=== PATIENT | male | born 1965 | race Caucasian/White ===

== ENCOUNTER → 2016-10-28 | Outpatient (REF) | payer OTHER ==
[2016-10-28 13:07] LABS: ALBUMIN 4.3 GM/DL (3.2-5.2); ALBUMIN/GLOBULIN RATIO 1.43 (1.00-1.93); ALKALINE PHOSPHATASE 68 U/L (45-117); ALT/SGPT 35 U/L (12-78); ANION GAP 5 MEQ/L (8-16); AST/SGOT 20 U/L (15-37); BILIRUBIN,TOTAL 0.6 MG/DL (0.2-1.0); BLOOD UREA NITROGEN 15 MG/DL (7-18); CALCIUM LEVEL 9.2 MG/DL (8.5-10.1); CARBON DIOXIDE LEVEL 30 MEQ/L (21-32); CHLORIDE LEVEL 99 MEQ/L (98-107); CHOLESTEROL LEVEL 143 MG/DL (<200); CREATININE FOR GFR 0.93 MG/DL (0.70-1.30); FREE T4 1.09 NG/DL (0.76-1.46); GLOMERULAR FILTRATION RATE > 60.0 (>56); GLUCOSE, FASTING 106 MG/DL (70-105); SODIUM LEVEL 134 MEQ/L (136-145); TOTAL PROTEIN 7.3 GM/DL (6.4-8.2); TRIGLYCERIDES LEVEL 50 MG/DL (<150)
[2016-10-28 13:15] LABS: POTASSIUM SERUM 5.6 MEQ/L (3.5-5.1)
== END ==
LOC: M LABDRAW1 11:52
PROVIDERS: ATTEND Nurse Practitioner Family
DX: E78.2 Mixed hyperlipidemia (principal); E03.9 Hypothyroidism, unspecified

== ENCOUNTER → 2016-11-04 | Outpatient (REF) | payer OTHER ==
[2016-11-04 16:28] LABS: ANION GAP 7 MEQ/L (8-16); BLOOD UREA NITROGEN 14 MG/DL (7-18); CALCIUM LEVEL 8.9 MG/DL (8.5-10.1); CARBON DIOXIDE LEVEL 30 MEQ/L (21-32); CHLORIDE LEVEL 102 MEQ/L (98-107); CREATININE FOR GFR 0.85 MG/DL (0.70-1.30); GLOMERULAR FILTRATION RATE > 60.0 (>56); GLUCOSE, FASTING 91 MG/DL (70-105); SODIUM LEVEL 139 MEQ/L (136-145)
[2016-11-04 16:45] LABS: MEAN CORPUSCULAR HEMOGLOBIN 31.9 pg (27.0-33.0); MEAN CORPUSCULAR HGB CONC 33.9 g/dl (32.0-36.5); MEAN CORPUSCULAR VOLUME 94.1 fl (80.0-96.0); RED CELL DISTRIBUTION WIDTH 11.9 % (11.5-14.5); WHITE BLOOD COUNT 5.8 K/mm3 (4.0-10.0)
== END ==
LOC: M SFHCPLAZ 10:05
PROVIDERS: ATTEND Nurse Practitioner Family
DX: J30.2 Other seasonal allergic rhinitis (principal); I25.10 Atherosclerotic heart disease of native coronary artery without angina pectoris

== ENCOUNTER → 2016-12-02 | Outpatient (REF) | payer OTHER | LOC: M SFHCLERA 08:52 | PROVIDERS: ATTEND Dermatology | DX: D22.5 Melanocytic nevi of trunk (principal) ==

== ENCOUNTER → 2016-12-17 | Outpatient (REF) | payer OTHER | LOC: M SFHCLERA 08:57 | PROVIDERS: ATTEND Dermatology | DX: L82.0 Inflamed seborrheic keratosis (principal) ==

== ENCOUNTER → 2017-04-27 | Outpatient (REF) | payer OTHER ==
[2017-04-27 13:24] LABS: ALBUMIN 4.1 GM/DL (3.2-5.2); ALBUMIN/GLOBULIN RATIO 1.24 (1.00-1.93); ALKALINE PHOSPHATASE 72 U/L (45-117); ALT/SGPT 33 U/L (12-78); ANION GAP 9 MEQ/L (8-16); AST/SGOT 17 U/L (7-37); BILIRUBIN,TOTAL 0.4 MG/DL (0.2-1.0); BLOOD UREA NITROGEN 16 MG/DL (7-18); CALCIUM LEVEL 8.9 MG/DL (8.5-10.1); CARBON DIOXIDE LEVEL 28 MEQ/L (21-32); CHLORIDE LEVEL 102 MEQ/L (98-107); CREATININE FOR GFR 0.84 MG/DL (0.70-1.30); FREE T4 1.15 NG/DL (0.76-1.46); GLOMERULAR FILTRATION RATE > 60.0 (>56); GLUCOSE, FASTING 96 MG/DL (70-105); SODIUM LEVEL 139 MEQ/L (136-145); TOTAL PROTEIN 7.4 GM/DL (6.4-8.2)
== END ==
LOC: M SFHCPLAZ 12:29
PROVIDERS: ATTEND Nurse Practitioner Family
DX: E03.9 Hypothyroidism, unspecified (principal); E55.9 Vitamin D deficiency, unspecified

== ENCOUNTER → 2017-10-12 | Outpatient (CLI) | payer BC, OTHER | LOC: M RAD 08:35 | DX: K40.90 Unilateral inguinal hernia, without obstruction or gangrene, not specified as recurrent (principal) ==

== ENCOUNTER → 2017-10-28 | Outpatient (REF) | payer BC, OTHER ==
[2017-10-28 12:43] LABS: ALBUMIN 4.2 GM/DL (3.2-5.2); ALBUMIN/GLOBULIN RATIO 1.27 (1.00-1.93); ALKALINE PHOSPHATASE 75 U/L (45-117); ALT/SGPT 29 U/L (12-78); ANION GAP 6 MEQ/L (8-16); AST/SGOT 21 U/L (7-37); BILIRUBIN,TOTAL 0.8 MG/DL (0.2-1.0); BLOOD UREA NITROGEN 16 MG/DL (7-18); CALCIUM LEVEL 9.2 MG/DL (8.5-10.1); CARBON DIOXIDE LEVEL 30 MEQ/L (21-32); CHLORIDE LEVEL 106 MEQ/L (98-107); CHOLESTEROL LEVEL 147 MG/DL (<200); CHOLESTEROL RISK RATIO 2.041 (<5); FREE T4 1.21 NG/DL (0.76-1.46); GLOMERULAR FILTRATION RATE > 60.0 (>56); GLUCOSE, FASTING 104 MG/DL (70-100); HDL CHOLESTEROL 72 MG/DL (>40); LDL CHOLESTEROL 66.2 MG/DL (<100); MAGNESIUM LEVEL 2.1 MG/DL (1.8-2.4); NON-HDL-C 75 MG/DL; SODIUM LEVEL 142 MEQ/L (136-145); TOTAL PROTEIN 7.5 GM/DL (6.4-8.2); TRIGLYCERIDES LEVEL 44 MG/DL (<150)
== END ==
LOC: M LABDRAW1 09:33
DX: E78.2 Mixed hyperlipidemia (principal); E03.9 Hypothyroidism, unspecified; K21.9 Gastro-esophageal reflux disease without esophagitis

== ENCOUNTER → 2018-07-04 | Outpatient (REF) | payer OTHER | LOC: M LAB REF 13:20 | PROVIDERS: ATTEND Podiatrist Foot & Ankle Surgery | DX: L98.0 Pyogenic granuloma (principal) ==

== ENCOUNTER → 2018-07-04 | Outpatient (REF) | payer OTHER ==
[2018-07-04 12:36] LABS: BLOOD UREA NITROGEN 15 MG/DL (7-18); CHLORIDE LEVEL 105 MEQ/L (98-107); CREATININE FOR GFR 0.86 MG/DL (0.70-1.30); GLOMERULAR FILTRATION RATE > 60.0 (>56); GLUCOSE, FASTING 103 MG/DL (70-100); POTASSIUM SERUM 4.6 MEQ/L (3.5-5.1); SODIUM LEVEL 141 MEQ/L (136-145)
[2018-07-04 12:37] LABS: ALT/SGPT 26 U/L (12-78); BILIRUBIN,TOTAL 0.7 MG/DL (0.2-1.0); CALCIUM LEVEL 9.3 MG/DL (8.5-10.1); CARBON DIOXIDE LEVEL 28 MEQ/L (21-32); CHOLESTEROL LEVEL 151 MG/DL (<200); CHOLESTEROL RISK RATIO 2.516 (<5); FREE T4 1.01 NG/DL (0.76-1.46); HDL CHOLESTEROL 60 MG/DL (>40); LDL CHOLESTEROL 79 MG/DL (<100); NON-HDL-C 91 MG/DL; TOTAL 25(OH) VITAMIN D 35.4 NG/ML (30.0-100.0); TOTAL PROTEIN 7.3 GM/DL (6.4-8.2); TRIGLYCERIDES LEVEL 59 MG/DL (<150)
== END ==
LOC: M LABDRAW1 09:10
PROVIDERS: ATTEND Nurse Practitioner Family
DX: E78.2 Mixed hyperlipidemia (principal); E03.9 Hypothyroidism, unspecified; E55.9 Vitamin D deficiency, unspecified

== ENCOUNTER → 2018-08-15 | Outpatient (REF) | payer OTHER ==
[2018-08-15 12:37] LABS: FREE T4 1.15 NG/DL (0.76-1.46); THYROID STIMULATING HORMONE 1.31 uIU/ML (0.358-3.740)
== END ==
LOC: M LABDRAW1 11:48
PROVIDERS: ATTEND Nurse Practitioner Family
DX: E03.9 Hypothyroidism, unspecified (principal)

== ENCOUNTER → 2019-02-13 | Outpatient (REF) | payer OTHER ==
[2019-02-13 14:04] LABS: ALBUMIN 3.8 GM/DL (3.2-5.2); ALT/SGPT 23 U/L (12-78); BILIRUBIN,TOTAL 0.4 MG/DL (0.2-1.0); BLOOD UREA NITROGEN 20 MG/DL (7-18); CALCIUM LEVEL 9.2 MG/DL (8.5-10.1); CARBON DIOXIDE LEVEL 30 MEQ/L (21-32); CHLORIDE LEVEL 106 MEQ/L (98-107); CREATININE FOR GFR 1.01 MG/DL (0.70-1.30); FREE T4 1.05 NG/DL (0.76-1.46); GLOMERULAR FILTRATION RATE > 60.0 (>56); GLUCOSE, FASTING 93 MG/DL (70-100); POTASSIUM SERUM 3.9 MEQ/L (3.5-5.1); SODIUM LEVEL 142 MEQ/L (136-145); THYROID STIMULATING HORMONE 0.628 uIU/ML (0.358-3.740); TOTAL PROTEIN 7.1 GM/DL (6.4-8.2)
[2019-02-13 14:05] LABS: TOTAL 25(OH) VITAMIN D 27.4 NG/ML (30.0-100.0)
== END ==
LOC: M SFHCPLAZ 13:20 → M LABDRAW1 13:20
PROVIDERS: ATTEND Nurse Practitioner Family
DX: I25.10 Atherosclerotic heart disease of native coronary artery without angina pectoris (principal); E03.9 Hypothyroidism, unspecified; E55.9 Vitamin D deficiency, unspecified

== ENCOUNTER → 2019-08-24 | Outpatient (REF) | payer OTHER ==
[2019-08-24 13:04] LABS: BLOOD UREA NITROGEN 15 MG/DL (7-18); CALCIUM LEVEL 9.4 MG/DL (8.5-10.1); CARBON DIOXIDE LEVEL 31 MEQ/L (21-32); CHLORIDE LEVEL 101 MEQ/L (98-107); CREATININE FOR GFR 1.16 MG/DL (0.70-1.30); FREE T4 0.97 NG/DL (0.76-1.46); GLOMERULAR FILTRATION RATE > 60.0 (>56); GLUCOSE, FASTING 99 MG/DL (70-100); POTASSIUM SERUM 4.7 MEQ/L (3.5-5.1); SODIUM LEVEL 136 MEQ/L (136-145); TOTAL 25(OH) VITAMIN D 49.4 NG/ML (30.0-100.0)
== END ==
LOC: M SFHCADAM 08:24
PROVIDERS: ATTEND Nurse Practitioner Family
DX: E03.9 Hypothyroidism, unspecified (principal); I25.10 Atherosclerotic heart disease of native coronary artery without angina pectoris; E55.9 Vitamin D deficiency, unspecified

== ENCOUNTER → 2020-02-19 | Outpatient (REF) | payer OTHER ==
[2020-02-19 16:00] LABS: ALBUMIN 4.1 GM/DL (3.2-5.2); ALT/SGPT 41 U/L (12-78); BILIRUBIN,TOTAL 0.5 MG/DL (0.2-1.0); BLOOD UREA NITROGEN 17 MG/DL (7-18); CALCIUM LEVEL 9.3 MG/DL (8.5-10.1); CARBON DIOXIDE LEVEL 29 MEQ/L (21-32); CHLORIDE LEVEL 103 MEQ/L (98-107); CHOLESTEROL LEVEL 123 MG/DL (<200); CREATININE FOR GFR 1.02 MG/DL (0.70-1.30); FOLATE 11.4 NG/ML; FREE T4 1.17 NG/DL (0.76-1.46); GLOMERULAR FILTRATION RATE > 60.0 (>56); GLUCOSE, FASTING 98 MG/DL (70-100); HDL CHOLESTEROL 58 MG/DL (>40); LDL CHOLESTEROL 56 MG/DL (<100); MAGNESIUM LEVEL 2.2 MG/DL (1.8-2.4); NON-HDL-C 65 MG/DL; POTASSIUM SERUM 4.2 MEQ/L (3.5-5.1); SODIUM LEVEL 136 MEQ/L (136-145); TOTAL 25(OH) VITAMIN D 43.9 NG/ML (30.0-100.0); TOTAL PROTEIN 7.5 GM/DL (6.4-8.2); TRIGLYCERIDES LEVEL 43 MG/DL (<150); VITAMIN B12 LEVEL 725 PG/ML
[2020-02-19 16:02] LABS: MALB URINE SIEMENS 6.6 MG/L; MAU/CREAT RATIO 2.7 MCG/MG (0.0-30.0)
== END ==
LOC: M SFHCADAM 08:29
PROVIDERS: ATTEND Nurse Practitioner Family
DX: I25.10 Atherosclerotic heart disease of native coronary artery without angina pectoris (principal); E03.9 Hypothyroidism, unspecified; E78.2 Mixed hyperlipidemia; K21.9 Gastro-esophageal reflux disease without esophagitis; E55.9 Vitamin D deficiency, unspecified

== ENCOUNTER → 2020-05-19 | Outpatient (CLI) | payer SELFPAY | LOC: M LABSMTC 10:03 | PROVIDERS: ATTEND Pediatrics | DX: Z20.828 Contact with and (suspected) exposure to other viral communicable diseases (principal) ==

== ENCOUNTER 2020-07-16 11:56 | Emergency (ER) | payer BC, OTHER ==
[~2020-07-16] VITALS: Ht 175.3 cm; Wt 89.2 kg
[2020-07-16] MEDS ORDERED: ATOR40TA75 (12:12)
[2020-07-16] MEDS ORDERED: CARV3.12 (12:12)
[2020-07-16] MEDS ORDERED: ASPI81TA26 PO (12:12)
[2020-07-16] MEDS ORDERED: DICY10CA13 (12:12)
[2020-07-16] MEDS ORDERED: LEVO100T5 (12:12)
[2020-07-16] MEDS ORDERED: EZET10TA21 (12:12)
[2020-07-16] MEDS ORDERED: PANT40TA29 (12:12)
[2020-07-16] MEDS ORDERED: LIDOCAINE 2% MDV 20ML VIAL SC ONE (12:30)
[2020-07-16] MEDS ORDERED: CEPH500C PO (13:04)
[2020-07-16 13:29] VITALS: BP 127/67
== END 2020-07-16 13:30 | disposition home or self-care (01) ==
LOC: M ED 11:56
DX: S66.222A Laceration of extensor muscle, fascia and tendon of left thumb at wrist and hand level, initial encounter (principal); W26.0XXA Contact with knife, initial encounter; Z79.82 Long term (current) use of aspirin; Z79.899 Other long term (current) drug therapy

== ENCOUNTER → 2020-09-02 | Outpatient (REF) | payer OTHER ==
[~2020-09-02] MED LIST: ASPI81TA26 PO; ATOR40TA75; CARV3.12; CEPH500C PO; DICY10CA13; EZET10TA21; LEVO100T5; PANT40TA29
[2020-09-02 17:12] LABS: BLOOD UREA NITROGEN 12 MG/DL (7-18); CALCIUM LEVEL 9.7 MG/DL (8.5-10.1); CARBON DIOXIDE LEVEL 30 MEQ/L (21-32); CHLORIDE LEVEL 103 MEQ/L (98-107); FREE T4 0.98 NG/DL (0.76-1.46); GLOMERULAR FILTRATION RATE > 60.0 (>56); GLUCOSE, FASTING 95 MG/DL (70-100); POTASSIUM SERUM 4.6 MEQ/L (3.5-5.1); SODIUM LEVEL 138 MEQ/L (136-145)
[2020-09-02 17:13] LABS: TOTAL 25(OH) VITAMIN D 36.8 NG/ML (30.0-100.0)
== END ==
LOC: M SFHCADAM 08:23
PROVIDERS: ATTEND Nurse Practitioner Family
DX: E03.9 Hypothyroidism, unspecified (principal); I25.10 Atherosclerotic heart disease of native coronary artery without angina pectoris; E55.9 Vitamin D deficiency, unspecified

== ENCOUNTER → 2021-03-07 | Outpatient (CLI) | payer OTHER ==
[2021-03-07 14:02] LABS: MALB URINE SIEMENS < 5.0 MG/L
[2021-03-07 14:03] LABS: ALBUMIN 3.9 GM/DL (3.2-5.2); ALT/SGPT 37 U/L (12-78); BILIRUBIN,TOTAL 0.5 MG/DL (0.2-1.0); BLOOD UREA NITROGEN 14 MG/DL (7-18); CALCIUM LEVEL 8.8 MG/DL (8.5-10.1); CARBON DIOXIDE LEVEL 32 MEQ/L (21-32); CHLORIDE LEVEL 106 MEQ/L (98-107); CHOLESTEROL LEVEL 106 MG/DL (<200); CHOLESTEROL RISK RATIO 1.859 (<5); CREATININE FOR GFR 1.04 MG/DL (0.70-1.30); FREE T4 1.02 NG/DL (0.76-1.46); GLOMERULAR FILTRATION RATE > 60.0 (>56); GLUCOSE, FASTING 104 MG/DL (70-100); HDL CHOLESTEROL 57 MG/DL (>40); LDL CHOLESTEROL 40 MG/DL (<100); NON-HDL-C 49 MG/DL; POTASSIUM SERUM 5.2 MEQ/L (3.5-5.1); SODIUM LEVEL 138 MEQ/L (136-145); TOTAL PROTEIN 7.3 GM/DL (6.4-8.2); TRIGLYCERIDES LEVEL 43 MG/DL (<150)
== END ==
LOC: M PLALAB 09:32
PROVIDERS: ATTEND Nurse Practitioner Family
DX: E03.9 Hypothyroidism, unspecified (principal); I25.10 Atherosclerotic heart disease of native coronary artery without angina pectoris; E78.2 Mixed hyperlipidemia; Z12.5 Encounter for screening for malignant neoplasm of prostate
CPT/HCPCS: 36415; 80053; 80061; 82043; 84439; 84443; G0103

== ENCOUNTER → 2021-03-13 | Outpatient (CLI) | payer BC, OTHER ==
[~2021-03-13] MED LIST changes: -ATOR40TA75; +ATOR40TA75 PO; -CARV3.12; +CARV3.12 PO; -DICY10CA13; +DICY10CA13 PO; -EZET10TA21; +EZET10TA21 PO; -LEVO100T5; +LEVO100T5 PO; +LEXA1TAB2 PO; -PANT40TA29; +PANT40TA29 PO
[2021-03-13 18:36] LABS: BLOOD UREA NITROGEN 12 MG/DL (7-18); CALCIUM LEVEL 10.1 MG/DL (8.5-10.1); CARBON DIOXIDE LEVEL 32 MEQ/L (21-32); CHLORIDE LEVEL 103 MEQ/L (98-107); CREATININE FOR GFR 1.02 MG/DL (0.70-1.30); GLOMERULAR FILTRATION RATE > 60.0 (>56); GLUCOSE, FASTING 96 MG/DL (70-100); POTASSIUM SERUM 4.2 MEQ/L (3.5-5.1); SODIUM LEVEL 137 MEQ/L (136-145)
== END ==
LOC: M PLALAB 14:39
PROVIDERS: ATTEND Nurse Practitioner Family
DX: E87.5 Hyperkalemia (principal)

== ENCOUNTER → 2021-03-24 | Outpatient (CLI) | payer BC, OTHER | LOC: M LABSMTC 09:11 | PROVIDERS: ATTEND Anesthesiology | DX: Z01.812 Encounter for preprocedural laboratory examination (principal); Z20.822 Contact with and (suspected) exposure to COVID-19 ==

== ENCOUNTER 2021-03-28 11:35 | Day surgery (SDC) | payer BC, OTHER ==
[~2021-03-28] VITALS: Ht 175.3 cm; Wt 79.8 kg
[~2021-03-28 11:35] MED LIST changes: +NS 1,000 ML IV ONE
--- OUTSIDE RECORDS SUMMARY | 2021-03-28 11:39 | CCD ---
Author Author [facility] Organization [facility] Address Unknown Phone Unavailable Care Team Providers Care Tube Skiver Name Role Phone Pratt, Reny SIEBEL CRM DEVELOPER Unavailable Unavailable Pratt, Reny SIEBEL CRM DEVELOPER Unavailable Unavailable Pratt, Reny SIEBEL CRM DEVELOPER Unavailable Unavailable Pratt, Reny SIEBEL CRM DEVELOPER Unavailable Unavailable Pratt, Reny SIEBEL CRM DEVELOPER Unavailable Unavailable Pratt, Reny SIEBEL CRM DEVELOPER Unavailable Unavailable Pratt, Reny SIEBEL CRM DEVELOPER Unavailable Unavailable Pratt, Reny SIEBEL CRM DEVELOPER Unavailable Unavailable Pratt, Reny SIEBEL CRM DEVELOPER Unavailable Unavailable Pratt, Reny SIEBEL CRM DEVELOPER Unavailable Unavailable Pratt, Reny SIEBEL CRM DEVELOPER Unavailable Unavailable Pratt, Reny SIEBEL CRM DEVELOPER Unavailable Unavailable Pratt, Reny SIEBEL CRM DEVELOPER Unavailable Unavailable Charlebois, A Gabrielle RPA C Unavailable Unavailable Charlebois, A Gabrielle RPA C Unavailable Unavailable Charlebois, A Gabrielle RPA C Unavailable Unavailable Charlebois, A Gabrielle RPA C Unavailable Unavailable Charlebois, A Gabrielle RPA C Unavailable Unavailable Charlebois, A Gabrielle RPA C Unavailable Unavailable Charlebois, A Gabrielle RPA C Unavailable Unavailable Charlebois, A Gabrielle RPA C Unavailable Unavailable Charlebois, A Gabrielle RPA C Unavailable Unavailable Charlebois, A Gabrielle RPA C Unavailable Unavailable Charlebois, A Gabrielle RPA C Unavailable Unavailable Charlebois, A Gabrielle RPA C Unavailable Unavailable Charlebois, A Gabrielle RPA C Unavailable Unavailable Charlebois, A Gabrielle RPA C Unavailable Unavailable Charlebois, A Gabrielle RPA C Unavailable Unavailable Charlebois, A Gabrielle RPA C Unavailable Unavailable Charlebois, A Gabrielle RPA C Unavailable Unavailable Charlebois, A Gabrielle RPA C Unavailable Unavailable Charlebois, A Gabrielle RPA C Unavailable Unavailable Charlebois, A Gabrielle RPA C Unavailable Unavailable Charlebois, A Gabrielle RPA C Unavailable Unavailable Charlebois, A Gabrielle RPA C Unavailable Unavailable Charlebois, A Gabrielle RPA C Unavailable Unavailable Charlebois, A Gabrielle RPA C Unavailable Unavailable Charlebois, A Gabrielle RPA C Unavailable Unavailable Charlebois, A Gabrielle RPA C Unavailable Unavailable Charlebois, A Gabrielle RPA C Unavailable Unavailable Charlebois, A Gabrielle RPA C Unavailable Unavailable Charlebois, A Gabrielle RPA C Unavailable Unavailable Charlebois, A Gabrielle RPA C Unavailable Unavailable Charlebois, A Gabrielle RPA C Unavailable Unavailable Charlebois, A Gabrielle RPA C Unavailable Unavailable Charlebois, A Gabrielle RPA C Unavailable Unavailable Mollison, Piotr Esparza MD Unavailable Unavailable Mollison, Piotr Esparza MD Unavailable Unavailable Mollison, Piotr Esparza MD Unavailable Unavailable Mollison, Piotr Esparza MD Unavailable Unavailable Mollison, Piotr Esparza MD Unavailable Unavailable Mollison, Piotr Esparza MD Unavailable Unavailable Mollison, Piotr Esparza MD Unavailable Unavailable Mollison, Piotr Esparza MD Unavailable Unavailable MollisonPiotr MD Unavailable Unavailable MollisonPiotr MD Unavailable Unavailable MollisonPiotr MD Unavailable Unavailable MollisonPiotr MD Unavailable Unavailable Mollison, Piotr Esparza MD Unavailable Unavailable Mollison, Piotr Esparza MD Unavailable Unavailable Mollison, Piotr Esparza MD Unavailable Unavailable Mollison, Piotr Esparza MD Unavailable Unavailable Mollison, Piotr Esparza MD Unavailable Unavailable Mollison, Piotr Esparza MD Unavailable Unavailable Mollison, Piotr Esparza MD Unavailable Unavailable Mollison, Piotr Esparza MD Unavailable Unavailable Mollison, Piotr Esparza MD Unavailable Unavailable Mollison, Piotr Esparza MD Unavailable Unavailable Mollison, Piotr Esparza MD Unavailable Unavailable Mollison, Piotr Esparza MD Unavailable Unavailable Mollison, Piotr Esparza MD Unavailable Unavailable Mollison, Piotr Esparza MD Unavailable Unavailable Mollison, Piotr Esparza MD Unavailable Unavailable Mollison, Piotr Esparza MD Unavailable Unavailable Mollison, Piotr Esparza MD Unavailable Unavailable Mollison, Piotr Esparza MD Unavailable Unavailable AAN, R ROBY Unavailable Unavailable BITA, Marko SIMEON MD Unavailable Unavailable BITA, Marko SIMEON MD Unavailable Unavailable BITA, Marko SIMEON MD Unavailable Unavailable BITA, Marko SIMEON MD Unavailable Unavailable BITA, Marko SIMEON MD Unavailable Unavailable BITA, Marko SIMEON MD Unavailable Unavailable BITA, Marko SIMEON MD Unavailable Unavailable BITA, Marko SIMEON MD Unavailable Unavailable BITA, Marko SIMEON MD Unavailable Unavailable BITA, Marko SIMEON MD Unavailable Unavailable BITA, Marko SIMEON MD Unavailable Unavailable BITA, Marko SIMEON MD Unavailable Unavailable BITA, Marko SIMEON MD Unavailable Unavailable BITA, Marko SIMEON MD Unavailable Unavailable BITA, Marko SIMEON MD Unavailable Unavailable BITA, Marko SIMEON MD Unavailable Unavailable BITA, Marko SIMEON MD Unavailable Unavailable BITA, Marko SIMEON MD Unavailable Unavailable BITA, Marko SIMEON MD Unavailable Unavailable BITA, Marko SIMEON MD Unavailable Unavailable BITA, Marko SIMEON MD Unavailable Unavailable BITA, Marko SIMEON MD Unavailable Unavailable BITA, Marko SIMEON MD Unavailable Unavailable BITA, Marko SIMEON MD Unavailable Unavailable BITA, Marko SIMEON MD Unavailable Unavailable BITA, Marko SIMEON MD Unavailable Unavailable BITA, Marko SIMEON MD Unavailable Unavailable BITA, Marko SIMEON MD Unavailable Unavailable BITA, Marko SIMEON MD Unavailable Unavailable BITA, Marko SIMEON MD Unavailable Unavailable BITA, Marko SIMEON MD Unavailable Unavailable BITA, Marko SIMEON MD Unavailable Unavailable BITA, Marko SIMEON MD Unavailable Unavailable BITA, Marko SIMEON MD Unavailable Unavailable BITA, Marko SIMEON MD Unavailable Unavailable BITA, Marko SIMEON MD Unavailable Unavailable BITA, Marko SIMEON MD Unavailable Unavailable BITA, Marko SIMEON MD Unavailable Unavailable BITA, Marko SIMEON MD Unavailable Unavailable BITA, Marko SIMEON MD Unavailable Unavailable BITA, Marko SIMEON MD Unavailable Unavailable BITA, Marko SIMEON MD Unavailable Unavailable BITA, Makro SIMEON MD Unavailable Unavailable BITA, Marko SIMEON MD Unavailable Unavailable BITA, Marko SIMEON MD Unavailable Unavailable BITA, Marko SIMEON MD Unavailable Unavailable BITA, Marko SIMEON MD Unavailable Unavailable BITA, Marko SIMEON MD Unavailable Unavailable BITA, Marko SIMEON MD Unavailable Unavailable BITA, Marko SIMEON MD Unavailable Unavailable BITA, Marko SIMEON MD Unavailable Unavailable BITA, Marko SIMEON MD Unavailable Unavailable BITA, Marko SIMEON MD Unavailable Unavailable BITA, Marko SIMEON MD Unavailable Unavailable BITA, Marko SIMEON MD Unavailable Unavailable BITA, Marko SIMEON MD Unavailable Unavailable BITA, Marko SIMEON MD Unavailable Unavailable BITA, Marko SIMEON MD Unavailable Unavailable BITA, Marko SIMEON MD Unavailable Unavailable BITA, Marko SIMEON MD Unavailable Unavailable BITA, Marko SIMEON MD Unavailable Unavailable BITA, Marko SIMEON MD Unavailable Unavailable BITA, Marko SIMEON MD Unavailable Unavailable BITA, Marko SIMEON MD Unavailable Unavailable BITA, Marko SIMEON MD Unavailable Unavailable BITA, Marko SIMEON MD Unavailable Unavailable BITA, Marko SIMEON MD Unavailable Unavailable BITA, Marko SIMEON MD Unavailable Unavailable BITA, Marko SIMEON MD Unavailable Unavailable BITA, Marko SIMEON MD Unavailable Unavailable BITA, Marko SIMEON MD Unavailable Unavailable BITA, Marko SIMEON MD Unavailable Unavailable BITA, Marko SIMEON MD Unavailable Unavailable BITA, Marko SIMEON MD Unavailable Unavailable BITA, Marko SIMEON MD Unavailable Unavailable BITA, Marko SIMEON MD Unavailable Unavailable BITA, Marko SIMEON MD Unavailable Unavailable BITA, Marko SIMEON MD Unavailable Unavailable BITA, Marko SIMEON MD Unavailable Unavailable BITA, Marko SIMEON MD Unavailable Unavailable BITA, Marko SIMEON MD Unavailable Unavailable BITA, Marko SIMEON MD Unavailable Unavailable BITA, Marko SIMEON MD Unavailable Unavailable BITA, Marko SIMEON MD Unavailable Unavailable BITA, Marko SIMEON MD Unavailable Unavailable BITA, Marko SIMEON MD Unavailable Unavailable BITA, Marko SIMEON MD Unavailable Unavailable BITA, Marko SIMEON MD Unavailable Unavailable Fons, M Princess CUSTOMER TRAINING SPECIALIST Unavailable Unavailable Fons, M Princess CUSTOMER TRAINING SPECIALIST Unavailable Unavailable Fons, M Princess CUSTOMER TRAINING SPECIALIST Unavailable Unavailable Fons, M Princess CUSTOMER TRAINING SPECIALIST Unavailable Unavailable Fons, M Princess CUSTOMER TRAINING SPECIALIST Unavailable Unavailable Fons, M Princess CUSTOMER TRAINING SPECIALIST Unavailable Unavailable Fons, M Princess CUSTOMER TRAINING SPECIALIST Unavailable Unavailable Fons, M Princess CUSTOMER TRAINING SPECIALIST Unavailable Unavailable Fons, M Princess CUSTOMER TRAINING SPECIALIST Unavailable Unavailable Fons, M Princess CUSTOMER TRAINING SPECIALIST Unavailable Unavailable Fons, M Princess CUSTOMER TRAINING SPECIALIST Unavailable Unavailable Fons, M Princess CUSTOMER TRAINING SPECIALIST Unavailable Unavailable Fons, M Pirncess CUSTOMER TRAINING SPECIALIST Unavailable Unavailable Fons, M Princess CUSTOMER TRAINING SPECIALIST Unavailable Unavailable Fons, M Princess CUSTOMER TRAINING SPECIALIST Unavailable Unavailable Fons, M Princess CUSTOMER TRAINING SPECIALIST Unavailable Unavailable Fons, M Princess CUSTOMER TRAINING SPECIALIST Unavailable Unavailable Fons, M Princess CUSTOMER TRAINING SPECIALIST Unavailable Unavailable Fons, M Princess CUSTOMER TRAINING SPECIALIST Unavailable Unavailable Fons, M Princess CUSTOMER TRAINING SPECIALIST Unavailable Unavailable Fons, M Princess CUSTOMER TRAINING SPECIALIST Unavailable Unavailable Fons, M Princess CUSTOMER TRAINING SPECIALIST Unavailable Unavailable Fons, M Princess CUSTOMER TRAINING SPECIALIST Unavailable Unavailable Fons, M Princess CUSTOMER TRAINING SPECIALIST Unavailable Unavailable Fons, M Princess CUSTOMER TRAINING SPECIALIST Unavailable Unavailable Fons, M Princess CUSTOMER TRAINING SPECIALIST Unavailable Unavailable Fons, M Princess CUSTOMER TRAINING SPECIALIST Unavailable Unavailable Fons, M Princess CUSTOMER TRAINING SPECIALIST Unavailable Unavailable Fons, M Princess CUSTOMER TRAINING SPECIALIST Unavailable Unavailable Fons, M Princess CUSTOMER TRAINING SPECIALIST Unavailable Unavailable Fons, M Princess CUSTOMER TRAINING SPECIALIST Unavailable Unavailable Fons, M Princess CUSTOMER TRAINING SPECIALIST Unavailable Unavailable Fons, M Princess CUSTOMER TRAINING SPECIALIST Unavailable Unavailable Fons, M Princess CUSTOMER TRAINING SPECIALIST Unavailable Unavailable Fons, M Princess CUSTOMER TRAINING SPECIALIST Unavailable Unavailable Fons, M Princess CUSTOMER TRAINING SPECIALIST Unavailable Unavailable Fons, M Princess CUSTOMER TRAINING SPECIALIST Unavailable Unavailable Fons, M Princess CUSTOMER TRAINING SPECIALIST Unavailable Unavailable Fons, M Princess CUSTOMER TRAINING SPECIALIST Unavailable Unavailable Fons, M Princess CUSTOMER TRAINING SPECIALIST Unavailable Unavailable Fons, M Princess CUSTOMER TRAINING SPECIALIST Unavailable Unavailable Fons, M Princess CUSTOMER TRAINING SPECIALIST Unavailable Unavailable Fons, M Princess CUSTOMER TRAINING SPECIALIST Unavailable Unavailable Fons, M Princess CUSTOMER TRAINING SPECIALIST Unavailable Unavailable Fons, M Princess CUSTOMER TRAINING SPECIALIST Unavailable Unavailable Fons, M Princess CUSTOMER TRAINING SPECIALIST Unavailable Unavailable Fons, M Princess CUSTOMER TRAINING SPECIALIST Unavailable Unavailable Fons, M Princess CUSTOMER TRAINING SPECIALIST Unavailable Unavailable Fons, M Princess CUSTOMER TRAINING SPECIALIST Unavailable Unavailable Fons, M Princess CUSTOMER TRAINING SPECIALIST Unavailable Unavailable Fons, M Princess CUSTOMER TRAINING SPECIALIST Unavailable Unavailable Fons, M Princess CUSTOMER TRAINING SPECIALIST Unavailable Unavailable Fons, M Princess CUSTOMER TRAINING SPECIALIST Unavailable Unavailable Iris DAVILA MD Unavailable Unavailable Iris DAVILA MD Unavailable Unavailable Iris DAVILA MD Unavailable Unavailable Iris DAVILA MD Unavailable Unavailable Iris DAVILA MD Unavailable Unavailable Iris DAVILA MD Unavailable Unavailable Iris DAVILA MD Unavailable Unavailable Iris DAVILA MD Unavailable Unavailable Iris DAVILA MD Unavailable Unavailable Iris DAVILA MD Unavailable Unavailable Iris DAVILA MD Unavailable Unavailable Iris DAVILA MD Unavailable Unavailable Iris DAVILA MD Unavailable Unavailable Iris DAVILA MD Unavailable Unavailable Iris DAVILA MD Unavailable Unavailable Iris DAVILA MD Unavailable Unavailable Iris DAVILA MD Unavailable Unavailable Iris DAVILA MD Unavailable Unavailable Iris DAVILA MD Unavailable Unavailable Iris DAVILA MD Unavailable Unavailable Iris DAVILA MD Unavailable Unavailable Iris DAVILA MD Unavailable Unavailable Iris DAVILA MD Unavailable Unavailable Iris DAVILA MD Unavailable Unavailable Iris DAVILA MD Unavailable Unavailable Iris DAVILA MD Unavailable Unavailable Iris DAVILA MD Unavailable Unavailable Iris DAVILA MD Unavailable Unavailable Iris DAVILA MD Unavailable Unavailable Iris DAVILA MD Unavailable Unavailable Iris DAVILA MD Unavailable Unavailable Iris DAVILA MD Unavailable Unavailable Iris DAVILA MD Unavailable Unavailable Iris DAVILA MD Unavailable Unavailable Iris DAVILA MD Unavailable Unavailable Iris DAVILA MD Unavailable Unavailable Iris DAVILA MD Unavailable Unavailable Iris DAVILA MD Unavailable Unavailable Iris DAVILA MD Unavailable Unavailable Iris DAVILA MD Unavailable Unavailable Iris DAVILA MD Unavailable Unavailable Iris DAVILA MD Unavailable Unavailable Iris DAVILA MD Unavailable Unavailable Iris DAVILA MD Unavailable Unavailable Iris DAVILA MD Unavailable Unavailable Iris DAVILA MD Unavailable Unavailable Iris DAVILA MD Unavailable Unavailable Iris DAVILA MD Unavailable Unavailable Iris DAVILA MD Unavailable Unavailable Iris DAVILA MD Unavailable Unavailable Iris DAVILA MD Unavailable Unavailable Iris DAVILA MD Unavailable Unavailable Iris DAVILA MD Unavailable Unavailable Iris DAVILA MD Unavailable Unavailable Iris DAVILA MD Unavailable Unavailable Iris DAVILA MD Unavailable Unavailable Iris DAVILA MD Unavailable Unavailable Iris DAVILA MD Unavailable Unavailable Iris DAVILA MD Unavailable Unavailable Iris DAVILA MD Unavailable Unavailable Iris DAVILA MD Unavailable Unavailable Iris DAVILA MD Unavailable Unavailable Iris DAVILA MD Unavailable Unavailable Iris DAVILA MD Unavailable Unavailable Iris DAIVLA MD Unavailable Unavailable Iris DAVILA MD Unavailable Unavailable Iris DAVILA MD Unavailable Unavailable Iris DAVILA MD Unavailable Unavailable Iris DAVILA MD Unavailable Unavailable Iris DAVILA MD Unavailable Unavailable Iris DAVILA MD Unavailable Unavailable Iris DAVILA MD Unavailable Unavailable Iris DAVILA MD Unavailable Unavailable Iris DAVILA MD Unavailable Unavailable Iris DAVILA MD Unavailable Unavailable Iris DAVILA MD Unavailable Unavailable Iris DAVILA MD Unavailable Unavailable Iris DAVILA MD Unavailable Unavailable Iris DAVILA MD Unavailable Unavailable Re-disclosure Warning The records that you are about to access may contain information from federally-assisted alcohol or drug abuse programs. If such information is present, then the following federally mandated warning applies: This information has been disclosed to you from records protected by federal confidentiality rules (42 CFR part 2). The federal rules prohibit you from making any further disclosure of this information unless further disclosure is expressly permitted by the written consent of the person to whom it pertains or as otherwise permitted by 42 CFR part 2. A general authorization for the release of medical or other information is NOT sufficient for this purpose. The Federal rules restrict any use of the information to criminally investigate or prosecute any alcohol or drug abuse patient.The records that you are about to access may contain highly sensitive health information, the redisclosure of which is protected by Article 27-F of the [facility] Public Health law. If you continue you may have access to information: Regarding HIV / AIDS; Provided by facilities licensed or operated by the [facility] Office of Mental Health; or Provided by the [facility] Office for People With Developmental Disabilities. If such information is present, then the following [facility] mandated warning applies: This information has been disclosed to you from confidential records which are protected by state law. State law prohibits you from making any further disclosure of this information without the specific written consent of the person to whom it pertains, or as otherwise permitted by law. Any unauthorized further disclosure in violation of state law may result in a fine or residential sentence or both. A general authorization for the release of medical or other information is NOT sufficient authorization for further disc losure. Allergies and Adverse Reactions Type Description Substance Reaction Status Data Source(s ) Propensity to adverse reactions NO KNOWN ALLERGIES NO KNOWN ALLERGIES [facility] Family History Family Member Name Family Member Gender Family Member Status Date o f Status Description Data Source(s) Unknown Male Problem [facility] ([facility] Encounters Encounter Providers Location Date Indications Data Source(s ) [place] [address] [facility] [address] 03/13/2021 12:00:00 AM EDT eCW1 ([facility]) Unknown [address] [facility] [address] [address] 03/10/2021 12:00:00 AM EDT eCW1 ([facility]) Outpatient [address] [facility] [place] [id number] 10/23/2020 12:00:00 AM EDT eCW1 ([facility]) Unknown [address] [facility] [place] [address] 10/23/2020 12:00:00 AM EDT eCW1 ([facility]) Outpatient Attender: Reny darnell 10/13/2020 11:10:00 AM EDT [facility] ([facility]) Outpatient Attender: Gabrielle Marcos/Pascual/Ana Maria reynolds/Lynn 10/03/2020 09:30:00 AM EDT [facility] ([facility]ing, ) Outpatient [address] [facility] [address] [address] 09/05/2020 12:00:00 AM EDT eCW1 ([facility]) Outpatient Attender: RENE DAVILA MD [id number] 09/04/2020 12:00:00 AM EDT [facility] Outpatient Attender: RENE DAVILA MD [id number] 08/07/2020 12:0 0:00 AM EDT Laceration of extensor muscle, fascia and tendon of left thumb at wrist and hand level, initial encounter [facility] Laceration of extensor muscle, fascia an d tendon of left thumb at wrist and hand level, initial encounter [place] [address] [facility] [place] [address] 07/29/2020 12:00:00 AM EDT eCW1 ([facility]) Outpatient Attender: BLANCO SUNSHINE MDReferrer: Isaias Rivera MD 07/25/2020 12:00:00 AM EST [facility] Outpatient Attender: RENE DAVILA MDReferrer: Isaias hill MD [id number] 07/23/2020 12:00:00 AM EST Laceration of extensor muscle, fascia an d tendon of left thumb at wrist and hand level, initial encounter [facility] Laceration of extensor muscle, fascia an d tendon of left thumb at wrist and hand level, initial encounter Outpatient Attender: ROBY PEREZReferrer: RENE Delgadillo [id number] 07/23/2020 12:00:00 AM EST [facility] Outpatient Attender: Isaias Marcso/Pascual/Javier/Re indl 07/19/2020 07:00:00 AM EST [facility] ([facility]) [place] [address] [facility] [address] 07/05/2020 12:00:00 AM EST eCW1 ([facility]) Outpatient Attender: Princess OAKLEY [email or web address] 05/31/2020 12:00:00 AM EST [facility] Outpatient [address] [facility] [address] 02/21/2020 12:00:00 AM EDT eCW1 ([facility]) Immunizations Vaccine Date Status Description Data Source(s) influenza, recombinant, quadrIvalent,injectable, prese rvative free 03/13/2021 02:46:00 PM EDT completed eCW1 ([facility]) influenza, recombinant, quadrIvalent,injectable, prese rvative free 03/13/2021 02:46:00 PM EDT completed eCW1 ([facility]) COVID-19 dose #2 given elsewhere Unspecified 09/05/2020 08:5 2:00 AM EDT completed eCW1 ([facility]) COVID-19 dose #1 given elsewhere Unspecified 09/05/2020 08:5 2:00 AM EDT completed eCW1 ([facility]) COVID-19 dose #1 given elsewhere Unspecified 09/05/2020 08:5 2:00 AM EDT completed eCW1 ([facility]) COVID-19 dose #2 given elsewhere Unspecified 09/05/2020 08:5 2:00 AM EDT completed eCW1 ([facility]) COVID-19 dose #1 given elsewhere Unspecified 09/05/2020 08:5 2:00 AM EDT completed eCW1 ([facility]) COVID-19 dose #2 given elsewhere Unspecified 09/05/2020 08:5 2:00 AM EDT completed eCW1 ([facility]) COVID-19 dose #1 given elsewhere Unspecified 09/05/2020 08:5 2:00 AM EDT completed eCW1 ([facility]) COVID-19 dose #2 given elsewhere Unspecified 09/05/2020 08:5 2:00 AM EDT completed eCW1 ([facility]) COVID-19 dose #1 given elsewhere Unspecified 09/05/2020 08:5 2:00 AM EDT completed eCW1 ([facility]) COVID-19 dose #2 given elsewhere Unspecified 09/05/2020 08:5 2:00 AM EDT completed eCW1 ([facility]) COVID-19 VACCINE Pfizer 08/07/2020 12:00:00 AM EDT completed [facility] Vaccine Series Complete: YESThis Data wa s Submitted to [facility] Via [employer]. COVID-19 VACCINE Pfizer 07/17/2020 12:00:00 AM EST completed [facility] Vaccine Series Complete: NOThis Data was Submitted to [facility] [employer]. influenza, recombinant, quadrIvalent,injectable, prese rvative free 02/21/2020 11:39:00 AM EDT completed eCW1 ([facility]) influenza, recombinant, quadrIvalent,injectable, prese rvative free 02/21/2020 11:39:00 AM EDT completed eCW1 ([facility]) influenza, recombinant, quadrIvalent,injectable, prese rvative free 02/21/2020 11:39:00 AM EDT completed eCW1 ([facility]) influenza, recombinant, quadrIvalent,injectable, prese rvative free 02/21/2020 11:39:00 AM EDT completed eCW1 ([facility]) influenza, recombinant, quadrIvalent,injectable, prese rvative free 02/21/2020 11:39:00 AM EDT completed eCW1 ([facility]) influenza, recombinant, quadrIvalent,injectable, prese rvative free 02/21/2020 11:39:00 AM EDT completed eCW1 ([facility]) influenza, recombinant, quadrIvalent,injectable, prese rvative free 02/21/2020 11:39:00 AM EDT completed eCW1 ([facility]) influenza, recombinant, quadrIvalent,injectable, prese rvative free 02/21/2020 11:39:00 AM EDT completed eCW1 ([facility]) Medications Medication Brand Name Start Date Product Form Dose Route Admi nistrative Instructions Pharmacy Instructions Status Indications Reaction Description Data Source(s) Augmentin 875-125 MG UNK 10/23/2020 12:00:00 AM EDT 1.0 {tablet } active Augmentin 875-125 MG eCW1 ([facility]) Augmentin 875-125 MG UNK 10/23/2020 12:00:00 AM EDT 1.0 {tablet } active Augmentin 875-125 MG eCW1 (Critical access [facility]) Ofloxacin 3 MG/ML Ophthalmic Solution Ofloxacin 0.3 % Ofloxa wilver 0.3 % 10/23/2020 12:00:00 AM EDT 10.0 {drops_into_affected_ear} a ctive Ofloxacin 0.3 % eCW1 ([facility]) Ofloxacin 3 MG/ML Ophthalmic Solution Ofloxacin 0.3 % Ofloxa wilver 0.3 % 10/23/2020 12:00:00 AM EDT 10.0 {drops_into_affected_ear} a ctive Ofloxacin 0.3 % eCW1 ([facility]) Hydrocortisone 10 MG/ML / Neomycin 3.5 M G/ML / Polymyxin B 07202 UNT/ML Otic Solution Neomycin/Polymyxin/Hydrocortisone (Otic) 10/13/2020 12:00:00 AM EDT active MEDENT ([facility], [facility]) Sutab Sutab 10/03/2020 12:00:00 AM EDT active MEDENT ([facility], ) Bisacodyl 5 MG Delayed Release Oral Tablet [Dulcolax] Dulcol ax 10/03/2020 12:00:00 AM EDT ORAL active M EDENT ([facility], ) Cephalexin 500 MG Oral Capsule Cephalexin 500 MG Oral Capsule (KEFLEX) Cephalexin 500 MG Oral Capsule (KEFLEX) 07/16/2020 12:00:00 AM EST aborted [facility] ezetimibe 10 MG Oral Tablet Ezetimibe 10 MG Oral Table t (ZETIA) Ezetimibe 10 MG Oral Tablet (ZETIA) 07/12/2020 12:00:00 AM EST 10 mg Oral active Take 10 mg by mouth daily [facility] Dicyclomine Hydrochloride 10 MG Oral Cap bhavya Dicyclomine HCl 10 MG Oral Capsule (BENTYL) Dicyclomine HCl 10 MG Oral Capsule (BENTYL) 07/05/2020 12:00 :00 AM EST active TAKE 2 CAPSULES BY MOUTH 3 TIMES A DAY NEEDED [facility] carvedilol 3.125 MG Oral Tablet Carvedilol 3.125 MG Or al Tablet (COREG) Carvedilol 3.125 MG Oral Tablet (COREG) 05/25/2020 12:00:00 AM EST active TAKE 1 TABLET BY MOUTH EVERY DAY TWICE A DAY WITH FOOD [facility] carvedilol 3.125 MG Oral Tablet carvedilol (COREG) 3.1 25 MG tablet carvedilol (COREG) 3.125 MG tablet 05/25/2020 12:00:00 AM EST active TAKE 1 TABLET BY MOUTH EVERY DAY TWICE A DAY WITH FOOD [facility] atorvastatin 40 MG Oral Tablet Atorvastatin Calcium 40 MG Oral Tablet (LIPITOR) Atorvastatin Calcium 40 MG Oral Tablet (LIPITOR) 05/21/2020 12:00:00 AM EST 40 mg Oral active Take [address] [facility] Escitalopram 20 MG Oral Tablet Escitalopram Oxalate 20 MG Oral Tablet (LEXAPRO) Escitalopram Oxalate 20 MG Oral Tablet (LEXAPRO) 05/21/2020 12:00:00 AM EST 20 mg Oral active Take [address] [facility] Levothyroxine Sodium 0.1 MG Oral Tablet Levothyroxine Sodium 100 MCG Oral Tablet (SYNTHROID) Levothyroxine Sodium 100 MCG Oral Tablet (SYNTHROID) 0 05/21/2020 12:00:00 AM EST active TAKE 1 TABLET BY MOUTH DAILY ON AN EMPTY STOMACH [facility] pantoprazole 40 MG Delayed Release Oral Tablet Pantoprazole Sodium 40 MG Oral Tablet Delayed Release (PROTONIX) Pantoprazole Sodium 40 MG Oral Tablet De layed Release (PROTONIX) 05/21/2020 12:00:00 AM EST 40 mg Oral active Take 40 mg by mouth daily [facility] Aspirin 81 MG Delayed Release Oral Table t Aspirin Low Dose 81 MG Oral Tablet Delayed Release Aspirin Low Dose 81 MG Oral Tablet Delayed Release 09/2020 12:00:00 AM EST 81 mg Oral active Take 81 mg by mouth daily [facility] ezetimibe 10 MG Oral Tablet ezetimibe (ZETIA) 10 MG ta blet ezetimibe (ZETIA) 10 MG tablet 02/07/2020 12:00:00 AM EDT 10 mg Oral active Take 1 tablet (10 mg total) by mouth daily [facility] Insurance Providers Payer name Policy type / Coverage type Policy ID Covered constitution party ID Covered constitution party's relationship to palacios Policy [place] Plan Information [employer] [id number] Clarissa YLS [id number] [employer]BS [id number] xxxxxxxxxxxx [id number] [facility] [id number] SP [id number] BCBS EMPIRE JENIFER DIV [id number] SP [id number] EMPIRE PLAN [facility] U [id number] Self [id number] EMPIRE PLAN [facility] U [id number] Self [id number] ANSI-Commercial [id number] ANSI-Commercial [id number] ANSI-Commercial [id number] ANSI-Commercial [id number] ANSI-Commercial [id number] ANSI-Commercial [id number] [employer] O [id number] S [id number] BCBS EMPIRE JENIFER DIV UNAVAILABLE SP UNAVAILABLE EMPIRE (STATE EMP) P [id number] S [id number] BCBS EMPIRE JENIFER DIV [id number] SP [id number] [employer] [id number] SP [id number] BCBS EMPIRE JENIFER DIV [id number] SP [id number] [employer] [id number] SP [id number] BCBS EMPIRE JENIFER DIV [id number] SP [id number] SELF PAY ONLY [id number] SP [id number] Problems, Conditions, and Diagnoses Code Display Name Description Problem Type Effective Dates Data Source(s) S66.222A Laceration of extensor muscl e, fascia and tendon of left thumb at wrist and hand level, initial encounter Laceration of extensor muscle, fascia an d tendon of left thumb at wrist and hand level, initial encounter Diagnosis 07/23/2020 08:50:04 AM [facility] H60.92 [id number] Inflammation of left ear canal Problem 10/23/2020 12:00:00 AM EDT eCW1 ([facility]) Surgeries/Procedures Procedure Description Date Indications Data Source(s) Imm: Flublok Quadrivalent 18 years & older 0.5mL IM Influenz a 03/13/2021 12:00:00 AM EDT eCW1 ([facility]) Immunization: Flublok Quadrivalent (18 years & older) 0.5mL IM (Influenza) 02/21/2020 12:00:00 AM EDT eCW1 ([facility]) Results ID Date Data Source Basic Metabolic Profile (BMP) 03/13/2021 12:00:00 AM EDT eCW 1 ([facility]) Name Value Range Interpretation Code Description Data Milly rce(s) Supporting Document(s) 96 70-100 GLUCOSE, FASTING eCW1 ([facility]) 1.02 0.70-1.30 CREATININE FOR GFR eCW1 ([facility]) > 60.0 >56 GLOMERULAR FILTRATION RATE eCW 1 ([facility]) 12 7-18 BLOOD UREA NITROGEN eCW1 ([facility]) 137 136-145 SODIUM LEVEL eCW1 ([facility]) 10.1 8.5-10.1 CALCIUM LEVEL eCW1 ([facility]) 103 98-107 CHLORIDE LEVEL eCW1 ([facility]) 4.2 3.5-5.1 POTASSIUM SERUM eCW1 ([facility]) 32 21-32 CARBON DIOXIDE LEVEL eCW1 ([facility]) ID Date Data Source [id number] 09/04/2020 02:47:55 PM EDT [facility] Name Value Range Interpretation Code Description Data Milly rce(s) Supporting Document(s) Progress Note [facility] DWSRVc2yWaEMBbKk41/XFXiuODFrv0HdPFhrQYa3DFbgROAvD8ElFZE0gY3uYMB2JZoPJiWeXuYwTQQu lbm [file] ICAgICAgICAgICAgICAgICAgICAgICAgICAgICAgIC AgICAgICAgICAgICAgICAgICAgICAgDQogICAgICAgICAgICAgICAgICAgICAgICAgICAgICAgICAgIC AgICAgICAgICAgICAgICAgICAgICAgICAgICAgICAgICAgICAgICAgICAgICAgICAgICAgICAgICAgIC AgICAgDQogICAgICAgICAgICAgICAgICAgICAgICAg ICAgICAgICAgICAgICAgICAgICAgICAgICAgICAgICAgICAgICAgICAgICAgICAgICAgICAgICAgICAg ICAgICAgICAgICAgICAgDQogICAgICAgICAgICAgICAgICAgICAgICAgICAgICAgICAgICAgICAgICAg ICAgICAgICAgICAgICAgICAgICAgICAgICAgICAgIC AgICAgICAgICAgICAgICAgICAgICAgICAgDQogICAgICAgICAgICAgICAgICAgICAgICAgICAgICAgIC AgICAgICAgICAgICAgICAgICAgICAgICAgICAgICAgICAgICAgICAgICAgICAgICAgICAgICAgICAgIC AgICAgICAgDQogICAgICAgICAgICAgICAgICAgICAg ICAgICAgICAgICAgICAgICAgICAgICAgICAgICAgICAgICAgICAgICAgICAgICAgICAgICAgICAgICAg ICAgICAgICAgICAgICAgICAgDQogICAgICAgICAgICAgICAgICAgICAgICAgICAgICAgICAgICAgICAg ICAgICAgICAgICAgICAgICAgICAgICAgICAgICAgIC AgICAgICAgICAgICAgICAgICAgICAgICAgICAgDQogICAgICAgICAgICAgICAgICAgICAgICAgICAgIC AgICAgICAgICAgICAgICAgICAgICAgICAgICAgICAgICAgICAgICAgICAgICAgICAgICAgICAgICAgIC AgICAgICAgICAgDQogICAgICAgICAgICAgICAgICAg ICAgICAgICAgICAgICAgICAgICAgICAgICAgICAgICAgICAgICAgICAgICAgICAgICAgICAgICAgICAg ICAgICAgICAgICAgICAgICAgICAgDQogICAgICAgICAgICAgICAgICAgICAgICAgICAgICAgICAgICAg ICAgICAgICAgICAgICAgICAgICAgICAgICAgICAgIC GbHMMyUNEwVZGyOTWsSKWxQHUeFMDoKTJmOYJzCMOvWOv3L4sxJDMdLGKsCS4eIXq0Ag8+DQoNCmVuZH X4zbSotA1JVN9ph3JdCFmbJREbp8InHNs3LE9BWDUmFMjqWU5AVNjrih6JDRFvFAUswROBh1kbTsKkDO I3BZRqTxzuCD9SZYEcQ6owubLxFUMbCOPWMV7HMlNf I3PdjV64BKGCEr6+PDywyyAjSkfDTfZ4PMCod0LmDYp6MJ4XUYUzFpdix9JgYwElAORMVPfdXA2UCDY7 XZWtMPGuYk8TUQYdE016osNdTI7NQv0QJiMsQI5jub9CHvNlMNCbJerXCwe5ZPvbLW6LyBRgZYrHwa2k xxZfimGAp4ZnmuAdjRKOqyijzmFVNKhujgzrnZnxBF UaXDUsCE9zRI5fMBBuRAKyGuK7HFOFWX2BSWGtFCZxgKFaWRSdAXBZAK9MNCrqVPN9CEPpvdYqpKUhDA bwDF8RZVVbznSvRKpeDBCKBDl+Ak9JND5gd5GyFBeuTGEeMB1ina4ZUOxTYjOkS9R5pXMcW6W3DZohXj 1EYVTqKSYrXFvvONXXLMinNC3GAP4lodC3UO8YsSNf IKLvYWKulWTqYLz0N35brHFzWPmzEU6KMUG+Joselin+Og5IYAAhUOJkJQLuXzRfHVVEAnJmN7HiT9BSs7Rk E4QkZI49hOyiopSaHSbePK3HXC4xUZTuJFKNOC0BwVRukK6cqaEjGGElWJMASwEoV16czQWnMZIlRJV6 DTCaPs0MTLZhI2IqeqRhvZghidRcLMVsYYCWCQ5XEJ mxhoGhjDWmoUotYQ82nHxuCK1ACx9IJjZhKB8ilk0RlOUkYv7KJDOrRj4TYRWrWTKsQBRfMWU3HXAlOw BpJRljUOGcUOTkWLB8FDYsZLKvKD0NEqHoTDMeKInbXACkBANvROQemu1UGQHrIYLeNWTdWgTvBQPpAE FdDZooLELzOQBaRJQ3KDYwIUZmLH9QQrUoGTQlAVLy CtFcVZIpQRNgzb8IMMQwZBLfHjHlDYApABNxVGHsXZnrKFCrBDSgBzj0LOUjSMCbYO5OUtBuXWUeBTN7 UGXhUOWzYQGswa1BHNAtVDLdTfO9BJEjRLGfPVVxXPjuPVKkKMV5KtU0XZGnSOTjBQ2NUeVsYBSoKTY3 AzPiVJIeDJUvde2KFJMrQMNdAXYxKhQmVBJgCGZoZN gbQNGrTIJ9BuLeRGZkHHReLN7VXpNvSXLhPKU0FcnvMIVjKFEutm7UFODhRFWpFfe2GyQhAAGbLQJaXZ uwCPMeGKX0DHS9CXGhMHEvCC2QWsHnAVOsPKiuTfXzRVQvTUQmhm2VDOToXOVgEqL4SeAgREZaVZIxDG nfZOQdENW2JZVcSVIpAXGdVS5HIrGuAUNcIUcfTEYv XGWbODOstd2VYQNsOQNfPNSbGJMlBDPsKYYaDHo6sqNlhMZeBJs8EZ5DV2SwigFzOuMRFd3Th409WARs BKYuVk9XV8wxMv4kAYUzKFGJRa3LLGr8CnSxCPW2X1M1LXmlZMMrJQM1GMBsWCckVQB2NOJsCcI+IDw3 K3V7HFOzWTFsITKpLEXaXVarSzC3OWU8ZBb8PNYsRa 9wBMSQNm8+GNdnbRMoyRdiRQIZBuX4ELp3VImbNFUTAl7P ID Date Data Source [id number] 08/07/2020 03:11:00 PM EDT [facility] Name Value Range Interpretation Code Description Data Milly rce(s) Supporting Document(s) Progress Note [facility] EEZKJs7rTzIRAsDu98/ROZuzTEPqq8ArFRlaFHq1YYsjSRYjG6NxTTT5wW9jAYV9AQdVLnMaNyTjXkF1 lbm [file] T0YNCg== ID Date Data Source [id number] 07/23/2020 10:08:09 AM EST [facility] Name Value Range Interpretation Code Description Data Milly rce(s) Supporting Document(s) Progress Note [facility] YXUSFi1aWaRZLpHa97/XERzgDFJaq7JhNAdjORh8XUvvTIQeW8WaZHD7yG5eLSN5QKqVSsCbVqRlHtC3 lbm [file] OSDmAMS3TMFuJZF6LeX1COZtLtAcMSP6QcR1AzOf QS2NBv6GFuQ1QIY8dZMaLs3IHfPwHReISyGrBN1FSGb= ID Date Data Source [id number] 07/23/2020 10:02:57 AM EST [facility] Name Value Range Interpretation Code Description Data Milly rce(s) Supporting Document(s) Progress Note [facility] UVGZZm2cPqJCOpJc96/UMDyvSYRwr4XrXMgzNRu2IZkqMUUtK9ZtXCR8jF5vPKQ3MEzPYrJtQcHpViS5 lbm [file] AgICAgICAgICAgICAgICAgICAgICAgICAgICAgICAg ICAgICAgICAgICAgICAgICAgICAgICAgDQogICAgICAgICAgICAgICAgICAgICAgICAgICAgICAgICAg ICAgICAgICAgICAgICAgICAgICAgICAgICAgICAgICAgICAgICAgICAgICAgICAgICAgICAgICAgICAg ICAgICAgDQogICAgICAgICAgICAgICAgICAgICAgIC AgICAgICAgICAgICAgICAgICAgICAgICAgICAgICAgICAgICAgICAgICAgICAgICAgICAgICAgICAgIC AgICAgICAgICAgICAgICAgDQogICAgICAgICAgICAgICAgICAgICAgICAgICAgICAgICAgICAgICAgIC AgICAgICAgICAgICAgICAgICAgICAgICAgICAgICAg ICAgICAgICAgICAgICAgICAgICAgICAgICAgDQogICAgICAgICAgICAgICAgICAgICAgICAgICAgICAg ICAgICAgICAgICAgICAgICAgICAgICAgICAgICAgICAgICAgICAgICAgICAgICAgICAgICAgICAgICAg ICAgICAgICAgDQogICAgICAgICAgICAgICAgICAgIC AgICAgICAgICAgICAgICAgICAgICAgICAgICAgICAgICAgICAgICAgICAgICAgICAgICAgICAgICAgIC AgICAgICAgICAgICAgICAgICAgDQogICAgICAgICAgICAgICAgICAgICAgICAgICAgICAgICAgICAgIC AgICAgICAgICAgICAgICAgICAgICAgICAgICAgICAg ICAgICAgICAgICAgICAgICAgICAgICAgICAgICAgDQogICAgICAgICAgICAgICAgICAgICAgICAgICAg ICAgICAgICAgICAgICAgICAgICAgICAgICAgICAgICAgICAgICAgICAgICAgICAgICAgICAgICAgICAg ICAgICAgICAgICAgDQogICAgICAgICAgICAgICAgIC AgICAgICAgICAgICAgICAgICAgICAgICAgICAgICAgICAgICAgICAgICAgICAgICAgICAgICAgICAgIC AgICAgICAgICAgICAgICAgICAgICAgDQogICAgICAgICAgICAgICAgICAgICAgICAgICAgICAgICAgIC AgICAgICAgICAgICAgICAgICAgICAgICAgICAgICAg LMJmZDKrHXKsNYDfLWWmLTJrWCIlPMJzVGJqWCDoDNBwAZw3N3wfYWMrMYOwPB8tNLq6Qt7+DQoNCmVu IHH9lsXysD3CAZ1qa2XvGJhpNTFcn8GbDAp2WA9XMREwRQqrKY5BRXaabi9UUWMnGDYjsFYKt2vvMpEz UIQ1MJScBpojYB0DIRNqS0lnbbCrAAUuNGSLOO4KGm QpB6DktV07SPHRGu1+IGptzeHvBiaTIbTnTVFbg0LdFHl4PN8FJMNqEyudh3EzKkPbXIAWWYmvXY1TIK N2HDPeSIKuRu3HWWIsB621gzSoPP5JBb5QEsWeNL4ehb6QCbQkPELmDafVPnj9CSvkJG1NdDRvZPcJqc 8cqrVtslLEb4DggqPgxRSEYQMtjjZAILaaJ4klMH3O TZG7HHEiAO8vHQSgTFV1NrFwIFPFFE6BQZPfFNScqECbWLDrAPLLCX6WYCjnEBM9WLWvxbQhnFFiIUtq AU5DONYoarKbDvKpLTHJXDn+Gh9WQK2bg4VtBUugALEiAH9iwm3GWRfROsBkV5E3hVMeU4A7HDsnDt8H LEHkIYNpOhIlEWYZMOdyYI3CNA5ykwU7FC9UpCMdVO SlGWGfhPOuKXe2F10quYXsLSymJF9FSMK+Joselin+Qx2BDIFoCCAwWLNyBeTrQYKSVuFcF8QtG7ZAw8NfQ6 RnEZ16yKkqzfBwYCoyKO5HPP1zMZWrJWLGZH0SoQPltA5cugDlZmKsOVPRJyEdR20meRCbSACuDTDpDI TaNa6EFAXrN6JviuGjdTkdczDbPUVhNYYEPY2SAPbj brOziTUydFmfBD17tJwcNO9RXp3SLvZnWC4jxy9BdISiKf3OSUZiHM7KAGWrPVJoGEIrKGY7LKCcMtIh UJevPVUcIZFqSSP2VFRtHXTaIH3YXmScBCHuUlCvYXllGUBmEOZkcw6BPKVgCJHtUAm9GoPjMLEoFMAo FRnaDGBtIRMfKMQ8ERBvIIYuHQ1ZHmBqOWOsIRR0WQ iuPIElPGDipa1RWBMdYDJoWpd8AtMwVROeCHRoOTttKZUqCJD7QVBsIZDvSGKqXI8OCdJoKCLkVITbWS bjXMWjTYQaur9CGNCgUDQgTTTqMKPvHORyLQFgZQvuSLLkFDL2JTq8ODCcRIJrSP2DGaUkVPMcVMDrJB ibYYOgQAXjqh6RMSXdQBXnXrQ6QBJwKWWtSGUfWCrt NVJkHPI2ERZnTXPdORVrBL7HWpAsWYMsVUpzPKJgUQKwSTIrrd8BOGIoLLYyXYT4XAJkYXNkSXFoWJct LXUxBFF8Fca8YGOaVWDgYQ2YNeKiRVHsSBc6DWTsRADxFULuhy1BZXEqXEXlUIj1XMUkWRJkXFAnVLln OVCnKIE7XMR3XJVpXUQtII3MIfUuHLTtPeWbVfrhZY WqTQEmgm6CBGPoLFVaZSS4TbYnRLFpSNOiAGhsCUXiASNwIYdoMVQsPJViRS4AObQyENNvUySpYdNkNR UgVFOrdr0RKMTpNCUvZqBeUFLpSVCkPRBiUPw1xpGceZMkDYs8QO8ZB2ImpaHxExXPLx1Bm254LAG2QI UzLc0CK0plBe9hGNDzCNCTVx8KCWm4HlF6LWP9NdG3 MzynOUIbJJDmRzWdLvDfY0M6XVA5CqI+AYsrHra5HTgkPPYeVaSiWHX4GvYsVtVpB0RwZVd3AGvcFr4t XSANCj4+FIitfXLoaRycWVTDJpAnAJAgABvtJKJKWp0N ID Date Data Source [id number] 07/23/2020 09:40:00 AM EST [facility] Name Value Range Interpretation Code Description Data Milly rce(s) Supporting Document(s) SARS-CoV-2 RNA 2019 nCoV Real-Time RT-PCR: NOT DETECTED [facility] This lab was ordered by [facility] and reported by [facility]. ID Date Data Source [id number] 07/23/2020 07:01:39 PM EST [facility] Name Value Range Interpretation Code Description Data Milly rce(s) Supporting Document(s) Specimen source [Identifier] of Unspecified specimen [facility] SARS-CoV-2 RNA 2019 nCoV Real-Time RT-PCR: NOT DETECTED [facility] Assay Performed [facility] Patients first test for condition [facility] Patient employed in healthcare setting [facility] Patient has symptoms related to condition [facility] When did you start to experience these symptoms [Date and time] [Phen X] [facility] Patient was hospitalized because of this condition [facility] patient was admitted to ICU for condition [facility] Patient resides in a congregate care setting [facility] status [facility] ID Date Data Source [id number] 07/23/2020 09:37:14 AM EST [facility] Name Value Range Interpretation Code Description Data Milly rce(s) Supporting Document(s) Progress Note [facility] CALQSt3pWaMIIpHv74/PIVlnLHRrp2XlNLbiJKi7XGfsDMOjN8JlEVR5yY2gXDQ1CGnATmImWrCnMrQ8 lbm [file] AgICAgICAgICAgICAgICAgICAgICAgICAgICAgICAgICAgICAgICAgICAgICAgICAgICAgICAgICAgIC AgICAgICAgICAgICAgICANCiAgICAgICAgICAgICAgICAgICAgICAgICAgICAgICAgICAgICAgICAgIC AgICAgICAgICAgICAgICAgICAgICAgICAgICAgICAg ICAgICAgICAgICAgICAgICAgICAgICAgICANCiAgICAgICAgICAgICAgICAgICAgICAgICAgICAgICAg ICAgICAgICAgICAgICAgICAgICAgICAgICAgICAgICAgICAgICAgICAgICAgICAgICAgICAgICAgICAg ICAgICAgICANCiAgICAgICAgICAgICAgICAgICAgIC AgICAgICAgICAgICAgICAgICAgICAgICAgICAgICAgICAgICAgICAgICAgICAgICAgICAgICAgICAgIC AgICAgICAgICAgICAgICAgICANCiAgICAgICAgICAgICAgICAgICAgICAgICAgICAgICAgICAgICAgIC AgICAgICAgICAgICAgICAgICAgICAgICAgICAgICAg ICAgICAgICAgICAgICAgICAgICAgICAgICAgICANCiAgICAgICAgICAgICAgICAgICAgICAgICAgICAg ICAgICAgICAgICAgICAgICAgICAgICAgICAgICAgICAgICAgICAgICAgICAgICAgICAgICAgICAgICAg ICAgICAgICAgICANCiAgICAgICAgICAgICAgICAgIC AgICAgICAgICAgICAgICAgICAgICAgICAgICAgICAgICAgICAgICAgICAgICAgICAgICAgICAgICAgIC AgICAgICAgICAgICAgICAgICAgICANCiAgICAgICAgICAgICAgICAgICAgICAgICAgICAgICAgICAgIC AgICAgICAgICAgICAgICAgICAgICAgICAgICAgICAg ICAgICAgICAgICAgICAgICAgICAgICAgICAgICAgICANCiAgICAgICAgICAgICAgICAgICAgICAgICAg ICAgICAgICAgICAgICAgICAgICAgICAgICAgICAgICAgICAgICAgICAgICAgICAgICAgICAgICAgICAg ICAgICAgICAgICAgICANCiAgICAgICAgICAgICAgIC AgICAgICAgICAgICAgICAgICAgICAgICAgICAgICAgICAgICAgICAgICAgICAgICAgICAgICAgICAgIC AgICAgICAgICAgICAgICAgICAgICAgICANCjw/nGRyM7nlqEKyfwG3X6mxAe4DKk2FWV7zu5BmZHYlQC xkqsOsTbkAMwRnYSJfLmrXBjy7GBloOB6SbASsG2Wh I7QzLPmgII6LZUQaCKLlqNLfNPOwRDTkVjA7FFGwULgmFC8BpXRlEEptBAOzUWVoSD2KAWMnK993ktSv VH7ZSt8NHhIhLL7hhp9MFUheUIBfJpvOIbb8BNejMI6ZfBSspQQcHBNlAWPXIpMlW5hkz9HkBaMwMWCQ BSydJJ5Dx2ExqAYfEMh+Xy9HHQ2lq0LmJYelCTXfZJ 6usm9ZNZhJGmVyF0AmwZgeVISgw0xmOSAnOY7plDYwNGQ5ZVFzpuRzQYNqB1gylXTnnWkzOPLBQRI3SU QaOJ9dKRUpDNW9IrBsLJDKFM2VPWUnWMGptXUpKJYhZTZOGL7INNggGNR2NUDqxdSvnTAzRIsfVG5FVF JlbnQgMTkgMCBSDQo+Tx9NQU0cb3ChJDapKYHgRF7v yw7SUZgNMgCtU2H4qRFtK0T2LQenWx0XKKZcPYJlDBuyPAMOZMtlNQ8ONT4micX2IH9OrKTtUBXkTAEr pVXpUYw8T37okCWoCXpxHA2PIKC+Joselin+Up6TYDEaONNlVRRhHvExMNQYHrUzS9QeX0QNu6NqS5YjZY94 iCcbmoIrFDlgLW3MOP8iWIYcWBWHWD0ErIRqfQ8jah KjLWUvBFAGHsFrK67usDAaBTUdHUQ0JOYsCe7THSItI6SokiEdwKvmueDfNNQrQPGDAK4BNMekhrHjqC BvtUyjWZ43cRpeVO6KXb2UDvPrID8hqm1MuPOjIm3PIWPaMu3TQIKbXHVfOPSlMSA1ZTIgTvRxQXqnGH DiQAJfAOM2OSGqKFMuCH8CKxEfCJQcSYpeBKzhXEYr YQYefz8KRSEtUTQtEPW0OkZxDRZkITShXZguVEHgTUGiVNB6BHCdOXAxSK0ERfVvHUDrKMVhMyXcCDBv HITqbp0TMFHaFQHqEkD4RWWjKHQmULFsKBirYDCmCNMlQcQ9TRHfHRLaHS7YVuGdZNWjGMG6YlQfUGIu NZYnuf8UKNImLJXcGcuxNqExKVRxRHPnFHhmSHSsZC S9ZgfjIGMwYIWcWM0VGaNgRNEhEVN2CqZbCXMcUUPoar0PFWFlXYQwUKL5NDOyXMGgYOAwPBebEZPcQM I7NYW3HVDoICTvJK1FRsRpHJOjREQ1HnWyFLIzCJQcbg7RTFZmPFWxIrn3PNYgVIYwBRVqDFksXRMvMH A8ZOrgXKWyTJToAQ5RIpTfTMYxHHbxVxGhNBYmCOIk ac8SKYHnPDOxUyzwUlXhRPOiCFPxZOxgJGNjNSE2GAV3ARLtSRGlUB1JZsWrLRZvSXjcUzWeXNEcAWXv ad4SZUBkBUOrPIB0PKKiTRZyUBGbYVl8psShvJCcSCj4IR7YT8SdsfQkTmBTUy3Dm783DCObMWDoIm5O A8ptTt5kKBHpCFFOJj4ZAJg9AZl5IYWlMTT5ThLeH2 CgAbP3VYYwJMHxITI1QgP8QMW+SKn1HFinUmH8IkI3WES6PAFfVKkdYbYgAPD0DPmqJoxvRa2mNEIHOk 4+HPnxjBNddZeuZJNDPfV4ObQ7ZHjgGFEIVi6M ID Date Data Source [id number] 05/19/2020 12:00:00 AM EST [facility] Name Value Range Interpretation Code Description Data Milly rce(s) Supporting Document(s) SARS-CoV-2 (COVID-19) RNA [Presence] in Respiratory specimen by ALAYNA with probe detection [facility] This lab was ordered by [facility] and reported by [facility]. Procedure Social History Code Duration Value Status Description Data Source(s ) Smoking 03/13/2021 12:00:00 AM EDT Never Smoker completed Never S moker eCW1 ([facility]) Smoking 03/13/2021 12:00:00 AM EDT Never Smoker completed Never S moker eCW1 ([facility]) Smoking 10/23/2020 12:00:00 AM EDT Never Smoker completed Never S moker eCW1 ([facility]) Smoking 10/23/2020 12:00:00 AM EDT Never Smoker completed Never S moker eCW1 ([facility]) Smoking 10/13/2020 12:00:00 AM EDT Patient has never smoked co mpleted Patient has never smoked MEDENT ([facility]) Smoking 09/05/2020 12:00:00 AM EDT Never Smoker completed Never S moker eCW1 ([facility]) Alcohol intake 09/04/2020 12:00:00 AM EDT Ex-drinker (finding) comp leted Ex- drinker (finding) [facility] Tobacco use and exposure 09/04/2020 12:00:00 AM EDT Never used co mpleted Never used [facility] Smoking 09/04/2020 12:00:00 AM EDT Never smoker completed Never s [facility] Alcohol intake 08/07/2020 12:00:00 AM EDT Ex-drinker (finding) comp leted Ex- drinker (finding) [facility] Alcohol intake 05/31/2020 12:00:00 AM EST Yes completed [facility] Smoking 05/31/2020 12:00:00 AM EST Never smoker completed Never s [facility] Smoking 02/21/2020 12:00:00 AM EDT Never Smoker completed Never S moker eCW1 ([facility]) Smoking 02/21/2020 12:00:00 AM EDT Never Smoker completed Never S moker eCW1 ([facility]) Smoking 02/21/2020 12:00:00 AM EDT Never Smoker completed Never S moker eCW1 ([facility]) Vital Signs ID Date Data Source UNK Name Value Range Interpretation Code Description Data Source(s) Body weight 180 [lb_av] 180 [lb_av] eCW1 ([facility]) Body height 69 [in_i] 69 [in_i] eCW1 ([facility]) Body mass index (BMI) [Ratio] 26.58 kg/m2 26.58 kg/m2 eCW1 ([facility]) Heart rate 80 /min 80 /min eCW1 ([facility]) Respiratory rate 20 /min 20 /min eCW1 ([facility]) Body temperature 9709 [degF] 9709 [degF] eCW1 ( [facility]) Systolic blood pressure 110 mm[Hg] 110 mm[Hg] e CW1 ([facility]) Diastolic blood pressure 80 mm[Hg] 80 mm[Hg] eCW1 ([facility]) Body weight 186.04 [lb_av] 186.04 [lb_av] eCW1 ([facility]) Body height 69 [in_i] 69 [in_i] eCW1 ([facility]) Body mass index (BMI) [Ratio] 27.47 kg/m2 27.47 kg/m2 eCW1 ([facility]) Heart rate 79 /min 79 /min eCW1 ([facility]) Respiratory rate 20 /min 20 /min eCW1 ([facility]) Body temperature 97.8 [degF] 97.8 [degF] eCW1 ( [facility]) Systolic blood pressure 110 mm[Hg] 110 mm[Hg] e CW1 ([facility]) Diastolic blood pressure 68 mm[Hg] 68 mm[Hg] eCW1 ([facility]) Systolic blood pressure 124 mm[Hg] 124 mm[Hg] M EDENT ([facility]) Diastolic blood pressure 86 mm[Hg] 86 mm[Hg] MEDENT ([facility]) Heart rate 76 /min 76 /min MEDENT ([facility]) Respiratory rate 13 /min 13 /min MEDENT ( [facility]) Oxygen saturation in Arterial blood by Pulse oximetry 98 % 98 % MEDENT ([facility]) Body temperature 97.8 [degF] 97.8 [degF] MEDENT ([facility]) Body weight 182.00 [lb_av] 182.00 [lb_av] MEDEN T ([facility]) Body height 69 [in_i] 69 [in_i] MEDENT ([facility]) 5'9" Body mass index (BMI) [Ratio] 26.9 kg/m2 26.9 k g/m2 MEDENT ([facility]) Body mass index (BMI) [Ratio] 27.3 kg/m2 27.3 k g/m2 MEDENT ([facility]) Systolic blood pressure 122 mm[Hg] 122 mm[Hg] M EDENT ([facility]) Diastolic blood pressure 82 mm[Hg] 82 mm[Hg] MEDENT ([facility]) Body height 69 [in_i] 69 [in_i] [facility] ([facility]) 5'9" Body weight 185.00 [lb_av] 185.00 [lb_av] MEDEN T ([facility]) [place] body weight 160 [lb_av] 160 [lb_av] MEDEN T ([facility]) Body weight 83.916 kg 83.916 kg [facility] ([facility]) Body surface area Derived from formula 2.00 m2 2.00 m2 [facility] ([facility]) Body weight 193 [lb_av] 193 [lb_av] eCW1 ([facility]) Body height 69 [in_i] 69 [in_i] eCW1 ([facility]) Body mass index (BMI) [Ratio] 28.50 kg/m2 28.50 kg/m2 W1 ([facility]) Heart rate 87 /min 87 /min W1 ([facility]) Respiratory rate 20 /min 20 /min W1 ([facility]) Body temperature 97.8 [degF] 97.8 [degF] eCW1 ( [facility]) Systolic blood pressure 124 mm[Hg] 124 mm[Hg] e CW1 ([facility]) Diastolic blood pressure 72 mm[Hg] 72 mm[Hg] eCW1 ([facility]) Body temperature 96.7 [degF] 96.7 [degF] [facility] Body height 69 [in_i] 69 [in_i] [facility] ([facility]) 5'9" Body weight 196.00 [lb_av] 196.00 [lb_av] [facility] ([facility]) Body mass index (BMI) [Ratio] 28.9 kg/m2 28.9 k g/m2 [facility] ([facility]) [place] body weight 160 [lb_av] 160 [lb_av] [facility] ([facility]) Body weight 88.906 kg 88.906 kg [facility] ([facility]) Body surface area Derived from formula 2.05 m2 2.05 m2 [facility] ([facility]) Body temperature 97.4 [degF] 97.4 [degF] [facility] ([facility]) Body height 69 [in_i] 69 [in_i] [facility] ([facility]) 5'9" Body weight 196.62 [lb_av] 196.62 [lb_av] [facility] ([facility]) Body mass index (BMI) [Ratio] 29.0 kg/m2 29.0 k g/m2 [facility] ([facility]) [place] body weight 160 [lb_av] 160 [lb_av] [facility] ([facility]) Body weight 89.200 kg 89.200 kg [facility] ([facility]) Body surface area Derived from formula 2.05 m2 2.05 m2 [facility] ([facility]) Body height 175.3 cm 175.3 cm [facility] Body weight 84.369 kg 84.369 kg [facility] Body mass index (BMI) [Ratio] 27.47 kg/m2 27.47 kg/m2 [facility] Body weight 196.2 [lb_av] 196.2 [lb_av] eCW1 ([facility]) Body height 69 [in_i] 69 [in_i] eCW1 ([facility]) Body mass index (BMI) [Ratio] 28.97 kg/m2 28.97 kg/m2 eCW1 ([facility]) Heart rate 84 /min 84 /min eCW1 ([facility]) Respiratory rate 17 /min 17 /min eCW1 ([facility]) Body temperature 97.2 [degF] 97.2 [degF] eCW1 ( [facility]) Systolic blood pressure 106 mm[Hg] 106 mm[Hg] e CW1 ([facility]) Diastolic blood pressure 70 mm[Hg] 70 mm[Hg] eCW1 ([facility]) ID Date Data Source [id number] 07/24/2020 04:05:51 PM [facility] Name Value Range Interpretation Code Description Data Source(s) WEIGHT RECORDED 196 lb 196 lb [facility] Body height Measured 69 in 69 in [facility] Patient Treatment Plan of Care Planned Activity Planned Date Details Description Data Source (s) Augmentin 875-125 MG 10/23/2020 12:00:00 AM EDT eCW1 ([facility]) Ofloxacin 3 MG/ML Ophthalmic Solution 10/23/2020 12:00:00 AM EDT eCW1 ([facility]) Augmentin 875-125 MG 10/23/2020 12:00:00 AM EDT eCW1 ([facility]) Ofloxacin 3 MG/ML Ophthalmic Solution 10/23/2020 12:00:00 AM EDT eCW1 ([facility]) Cephalexin 500 MG Oral Capsule 07/16/2020 12:00:00 AM [facility] ezetimibe 10 MG Oral Tablet 07/12/2020 12:00:00 AM [facility] Dicyclomine Hydrochloride 10 MG Oral Capsule 07/05/2020 12:00:00 AM [facility] carvedilol 3.125 MG Oral Tablet 05/25/2020 12:00:00 AM [facility] carvedilol 3.125 MG Oral Tablet 05/25/2020 12:00:00 AM [facility] pantoprazole 40 MG Delayed Release Oral Tablet 05/21/2020 12:00:00 AM [facility] Levothyroxine Sodium 0.1 MG Oral Tablet 05/21/2020 12:00:00 AM [facility] Escitalopram 20 MG Oral Tablet 05/21/2020 12:00:00 AM [facility] atorvastatin 40 MG Oral Tablet 05/21/2020 12:00:00 AM [facility] Aspirin 81 MG Delayed Release Oral Tablet 05/21/2020 12:00:00 AM [facility] ezetimibe 10 MG Oral Tablet 02/07/2020 12:00:00 AM EDT [facility]
--- OUTSIDE RECORDS SUMMARY | 2021-03-28 11:39 | CCD ---
Author Author [facility] Organization [facility] Address Unknown Phone Unavailable Care Team Providers Care Web Search Evaluator Name Role Phone Annie Alejandra Unavailable PROBLEMS Type Condition ICD9-CM Code [id number] Code Onset Dates Condition S tatus W/U Status Risk SNOMED Code Notes Problem Ischemic cardiomyopathy I25.5 Active confirmed 311291654 Problem H/O coronary angioplasty Z98.61 Active confirmed 679460644 Problem CAD (coronary artery disease) I25.10 Active confirm ed 11603485 Problem Irritable bowel syndrome with constipation and diarrhea K58.0 Active confirmed 37076889 Problem Asthma, intermittent J45.20 Active confirmed 603349316 Problem Mixed hyperlipidemia E78.2 Active confirmed 769447384 Problem ED (erectile dysfunction) of organic origin N52.9 Active confirmed 649470062 Problem Inflammation of left ear canal H60.92 Active confir med 7502144 Problem Dysthymic disorder F34.1 Active confirmed 7 1240141 Problem Gastroesophageal reflux disease without esophagitis K21.9 Active confirmed 056701674 Problem Allergic rhinitis, seasonal J30.2 Active confirmed 337336896 Problem Acquired hypothyroidism E03.9 Active confirmed 551069378 Problem Vitamin D deficiency E55.9 Active confirmed 52336558 ALLERGIES Allergen (clinical drug ingredient) Drug/Non Drug Allergy do cumented on EMR Reaction Allergy Type Onset Date Status simvastatin Zocor([facility] Code:[address]-86) muscle pain Drug Allergy Active ENCOUNTERS from 1965 to 2021-03-13 Encounter Location Date Provider Diagnosis [place] [id number] [facility] [phone] [place] [address] Feb, Annie Alejandra Hyperkalemia E87.5 IMMUNIZATIONS Vaccine Route Administration Date Status COVID-19 dose #2 given elsewhere Unspecified Unknown Aug Administered COVID-19 dose #1 given elsewhere Unspecified Unknown Aug Administered Influenza 18 yrs & older Flublok IM Intramuscular Feb 21, 2020 Administered Influenza 6mo & up Fluzone Unknown Mar 25, 2016 Admin istered Influenza 6mo & up Fluzone Unknown Mar 15, 2015 Admin istered Influenza 6mo & up Fluzone IM Intramuscular Feb 08, 2014 Admi nistered Influenza 18 yrs & older Flublok IM Intramuscular Mar 13, 2021 Administered Influenza 6mo & up Fluzone Unknown Apr 14, 2012 Admin istered Influenza 6mo & up Fluzone Unknown Mar 23, 2011 Admin istered Influenza 6mo & up Fluzone IM Intramuscular Feb 04, 2010 Admi nistered SOCIAL HISTORY Tobacco Use: Social History Observation Description Date Details (start date - stop date) Never Smoker Sex Assigned At : Social History Observation Description Sex Assigned At Unknown Education: Question Answer Notes Level of Education: High School Audit Question Answer Notes Total Score: 0 Interpretation: Alcohol Education Language: Question Answer Notes Languages spoken: Kyrgyz Latter-Day: Question Answer Notes Latter-[employer] 21 [employer] Sexual Hx: Question Answer Notes Had sex in the last 12 months (vaginal, oral, or anal)? Yes Have you ever had an STD? No with Women only Use protection? No Drug and Alcohol Question Answer Notes Total Score: 0 Interpretation: No problems reported Alcohol Screening: Question Answer Notes Did you have a drink containing alcohol in the past year? No Points 0 Interpretation Negative Tobacco Use: Question Answer Notes Are you a: never smoker never smoker REASON FOR REFERRAL No Information VITAL SIGNS No information MEDICATIONS Medication SIG (Take, Route, Frequency, Duration) Notes Start Da te End Date Status Levothyroxine Sodium 100 MCG TAKE 1 TABLET BY MOUTH DA CONSTANTIN ON AN EMPTY STOMACH for 90 Active Albuterol Sulfate (2.5 MG/3ML) 0.083% inhalation Inhal ation 4 times a day as needed for 90 day(s) Active Nebulizer/Tubing/Mouthpiece one 1 unit as directed Carol ry 4-6 hours as needed for 90 day(s) Active Sildenafil Citrate 100 MG 1 tablet as needed Orally Once a day f or 30 day(s) Feb, Active Bentyl 10 MG 2 capsules Orally Four times a day as needed Active Aspirin 81 MG 1 tablet Orally Once a day Active Vitamin D 2000 UNIT 2 tabs Orally Once a day Active Saline Nasal [place] 0.65 % 2 drops in each nostril as n eeded Nasally every 4 hrs as needed Active Escitalopram Oxalate 20 MG 1 tab Orally Once a day for 90 day(s) Active Ezetimibe 10 MG take 1 tablet by mouth every day Oral for 90 day(s) Active Pantoprazole Sodium 40 MG 1 tablet Orally Once a day for 90 Active Coreg 3.125 MG 1 tablet with food Orally Twice a day for 90 day(s) Active Rhinocort Aqua 32 MCG/ACT 2 puffs in each nostril Nasally Once a day Active Levothroid 100 mcg 1 tablet every morning on an empty stomach Orally Once a day for 90 days Active Claritin 10 mg 1 tab daily as needed Active Nebulizer one dx: asthma 493.9 - as directed Active Ventolin HFA 108 (90 Base) MCG/ACT 2 puffs Inhalation Every 4-6 hours as needed Active Metamucil 30.9 % OTC Orally Once a day Active Xopenex 0.63 MG/3ML 3 ml Inhalation four times a day as needed or day(s) Dec, Active Desonide 0.05 % 1 application a thin film to affected area face Externally Twice a day as needed for 15 day(s) Ac tive Dicyclomine HCl 10 MG 2 capsules Orally Three times a day as needed for 90 Active Atorvastatin Calcium 40 mg 1 tablet Orally Once a day for 90 Active Nitroglycerin 0.4 MG 1 tab as directed Sublingual as needed Active PROCEDURES No Information RESULTS No Results REASON FOR VISIT labs MEDICAL (GENERAL) HISTORY Type Description Date Medical History asthma Medical History Esophageal reflux Medical History Hiatal hernia Medical History hyperlipidemia Medical History Hypothyroidism 01/20 Medical History irritable bowel syndrome - EGD 10/20, 9, colonoscopy 07/23 Medical History hernia R inguinal age 6 Medical History allergic rhinitis Medical History family history of CAD - nuc stress test negative 11/19, [facility] Medical History testosterone deficiency Medical History erectile dysfxn Medical History CAD - Acute [place] 07/21/14 tx with thrombolyt ics and PTCA - [facility] Surgical History hernia repair Surgical History Right shoulder surgery Surgical History carpal tunnel release Right Surgical History EGD - gastritis,schatzki's ring, [place] 10/20, 07/23 Surgical History colonoscopy - diverticulosis, int hemorr hoids, [facility] 07/23 Surgical History knee arthroscopy L 12-08-27 Surgical History cardiac cath, PTCA with POBA x 2(dLAD, m LAD) 07-21-14 Surgical History cyst removal left foot - [facility] 07/04/18 Surgical History L thumb tendon repair - Dr Smallwood ([facility] [facility]) 08/04 Hospitalization History acute [place] at [facility] 07/2014 Goals Section No Information Health Concerns No Information MEDICAL EQUIPMENT No Information MENTAL STATUS No Information FUNCTIONAL STATUS No Information ASSESSMENTS Encounter Date Diagnosis Assessment Notes Treatment Notes Treatm ent Clinical Notes Feb, Hyperkalemia (ICD-10 - E87.5) PLAN OF TREATMENT Medication Medication Name Sig Start Date Stop Date Escitalopram Oxalate 20 MG 1 tab Orally Once a day for 90 day(s) Pantoprazole Sodium 40 MG 1 tablet Orally Once a day for 90 Vitamin D 2000 UNIT 2 tabs Orally Once a day Ezetimibe 10 MG take 1 tablet by mouth every day Oral for 90 day (s) Coreg 3.125 MG 1 tablet with food Orally Twice a day for 90 day (s) Rhinocort Aqua 32 MCG/ACT 2 puffs in each nostril Nasally Once a day Atorvastatin Calcium 40 mg 1 tablet Orally Once a day for 90 Levothroid 100 mcg 1 tablet every morning on an empty stomach Orally Once a day for 90 days Bentyl 10 MG 2 capsules Orally Four times a day as needed Ventolin HFA 108 (90 Base) MCG/ACT 2 puffs Inhalation Every 4-6 hours as needed Claritin 10 mg 1 tab daily as needed Aspirin 81 MG 1 tablet Orally Once a day Nitroglycerin 0.4 MG 1 tab as directed Sublingual as needed Treatment Notes Test Name Order Date Basic Metabolic Profile (BMP) 2021-03-13 Next Appt Details Provider Name:Prema Barrett, 09-11 08:45:00 AM, [address] [facility], , [place], [address], Insurance Providers Payer Name Payer Address Payer Phone Insured Name Patient Relati onship to Insured Coverage Start Date Coverage End Date [facility] [address] [facility] [id number] [phone] ALEK FINE self
[2021-03-28] MEDS ORDERED: LIDOCAINE 2% 100MG/5ML SDV (FOR ANES.) As Ordered ONE (13:14)
[2021-03-28] MEDS ORDERED: propofoL 200 MG/20 ML VIAL As Ordered ONE ×2 (13:14→13:47)
[2021-03-28] MEDS ORDERED: fentaNYL 100 MCG/2 ML INJECTION (J3010) As Ordered ONE (13:14)
--- NOTE | 2021-03-28 13:28 | ROOR ---
Patient Name: Aleksandr Woods Procedure Date: 03/28/2021 1:12 PM Date of : 1965 Age: 56 [facility] Gender: Male Note Status: Finalized Procedure: Upper GI endoscopy Indications: Heartburn Providers: Yon Bailey MD Referring MD: Annie Alejandra NP Requesting Provider: Medicines: Monitored Anesthesia Care Complications: No immediate complications. Procedure: Pre-Anesthesia Assessment: - The heart rate, respiratory rate, oxygen saturations, blood pressure, adequacy of pulmonary ventilation, and response to care were monitored throughout the procedure. The Endoscope was introduced through the mouth, and advanced to the second part of duodenum. The upper GI endoscopy was accomplished without difficulty. The patient tolerated the procedure well. Findings: A widely patent and non-obstructing Schatzki ring was found at the gastroesophageal junction. This was biopsied with a cold forceps for histology and mechanical fracture of ring. The exam of the esophagus was otherwise normal. The entire examined stomach was normal. The examined duodenum was normal. Impression: - Widely patent and non-obstructing Schatzki ring. Biopsied/fractured. - Otherwise normal esophagus. - Normal stomach. - Normal examined duodenum. Recommendation: - Follow an antireflux regimen. - Continue present medications. Procedure Code(s): --- Professional --- 07500, Esophagogastroduodenoscopy, flexible, transoral; with biopsy, single or multiple Diagnosis Code(s): --- Professional --- R12, Heartburn K22.2, Esophageal obstruction CPT copyright 2019 [employer]. All rights reserved. The codes documented in this report are preliminary and upon civil preparedness officer review may be revised to meet current compliance requirements. Yon Bailey MD Yon Bailey MD 03/28/2021 1:27:41 PM Electronically signed by Yon Bailey MD Number of Addenda: 0 Note Initiated On: 03/28/2021 1:12 PM Estimated Blood Loss: Estimated blood loss: none.
--- NOTE | 2021-03-28 13:42 | ROOR ---
Patient Name: Aleksandr Woods Procedure Date: 03/28/2021 1:13 PM Date of : 1965 Age: 56 Room: [facility] Gender: Male Note Status: Finalized Procedure: Colonoscopy Indications: Screening for colorectal malignant neoplasm Providers: Yon Bailey MD Referring MD: Annie Alejandra NP Requesting Provider: Medicines: Monitored Anesthesia Care Complications: No immediate complications. Procedure: Pre-Anesthesia Assessment: - The heart rate, respiratory rate, oxygen saturations, blood pressure, adequacy of pulmonary ventilation, and response to care were monitored throughout the procedure. The Colonoscope was introduced through the anus and advanced to the cecum, identified by appendiceal orifice and ileocecal valve. The colonoscopy was performed with difficulty due to poor bowel prep with stool present. Successful completion of the procedure was aided by lavage. The patient tolerated the procedure well. The quality of the bowel preparation was inadequate. Findings: The perianal and digital rectal examinations were normal. Multiple small and large-mouthed diverticula were found in the sigmoid colon. The colon is grossly normal without large tumors or obstructing lesions. Unable to perform adequate detail examination. Small lesions may have been missed. Impression: - Preparation of the colon was inadequate. The colon is grossly normal without large tumors or obstructing lesions. Unable to perform adequate detail examination. Small lesions may have been missed. - Diverticulosis in the sigmoid colon. - No specimens collected. Recommendation: - Repeat colonoscopy in 1 year because the bowel preparation was poor. Procedure Code(s): --- Professional --- 81860, Colonoscopy, flexible; diagnostic, including collection of specimen(s) by brushing or washing, when performed (separate procedure) Diagnosis Code(s): --- Professional --- K57.30, Diverticulosis of large intestine without perforation or abscess without bleeding Z12.11, Encounter for screening for malignant neoplasm of colon CPT copyright 2019 [employer]. All rights reserved. The codes documented in this report are preliminary and upon captain room service review may be revised to meet current compliance requirements. Yon Bailey MD Yon Bailey MD 03/28/2021 1:42:12 PM Electronically signed by Yon Bailey MD Number of Addenda: 0 Note Initiated On: 03/28/2021 1:13 PM Estimated Blood Loss: Estimated blood loss: none.
[2021-03-28 14:00] VITALS: BP 110/69
== END 2021-03-28 14:13 | disposition home or self-care (01) ==
LOC: M OPP 11:35
PROVIDERS: ATTEND Internal Medicine Gastroenterology
DX: R12 Heartburn (principal); K22.2 Esophageal obstruction; K57.30 Diverticulosis of large intestine without perforation or abscess without bleeding; Z12.11 Encounter for screening for malignant neoplasm of colon; I25.2 Old myocardial infarction; E78.5 Hyperlipidemia, unspecified; I10 Essential (primary) hypertension; K21.9 Gastro-esophageal reflux disease without esophagitis; F32.A Depression, unspecified; Z79.899 Other long term (current) drug therapy
CPT/HCPCS: 43239; 45378; 88305; J3010

== ENCOUNTER → 2021-05-20 | Outpatient (REF) | payer BC, OTHER ==
[~2021-05-20] MED LIST changes: -NS 1,000 ML IV ONE
== END ==
LOC: M SFHCPLAZ 09:48
PROVIDERS: ATTEND Physician Assistant
DX: R09.89 Other specified symptoms and signs involving the circulatory and respiratory systems (principal)

== ENCOUNTER → 2021-09-11 | Outpatient (CLI) | payer BC, OTHER ==
[2021-09-11 13:18] LABS: BASO # 0.1 10^3/uL (0.0-0.2); BASO % 0.7 % (0.0-1.0); EOS # 0.2 10^3/uL (0.0-0.5); EOS % 3.3 % (0.0-3.0); HEMATOCRIT 39.4 % (42.0-52.0); HEMOGLOBIN 13.3 g/dl (13.5-17.5); LYMPH # 1.8 10^3/uL (1.5-5.0); LYMPH % 25.4 % (24.0-44.0); MEAN CORPUSCULAR HEMOGLOBIN 31.1 pg (27.0-33.0); MEAN CORPUSCULAR HGB CONC 33.8 g/dl (32.0-36.5); MEAN CORPUSCULAR VOLUME 92.3 fl (80.0-96.0); MONO # 0.6 10^3/uL (0.0-0.8); MONO % 8.8 % (2.0-8.0); NEUTROPHILS # 4.3 10^3/uL (1.5-8.5); NEUTROPHILS % 60.8 % (36.0-66.0); PLATELET COUNT, AUTOMATED 244 10^3/uL (150-450); RED BLOOD COUNT 4.27 10^6/uL (4.30-6.10); WHITE BLOOD COUNT 7.1 10^3/uL (4.0-10.0)
[2021-09-11 13:38] LABS: HEMOGLOBIN A1c 5.4 %
[2021-09-11 13:57] LABS: ALBUMIN 3.9 GM/DL (3.2-5.2); ALT/SGPT 49 U/L (12-78); BILIRUBIN,TOTAL 0.6 MG/DL (0.2-1.0); BLOOD UREA NITROGEN 12 MG/DL (7-18); CALCIUM LEVEL 9.1 MG/DL (8.5-10.1); CARBON DIOXIDE LEVEL 32 MEQ/L (21-32); CHLORIDE LEVEL 103 MEQ/L (98-107); CHOLESTEROL LEVEL 103 MG/DL (<200); CREATININE FOR GFR 0.93 MG/DL (0.70-1.30); FREE T4 1.02 NG/DL (0.76-1.46); GLOMERULAR FILTRATION RATE > 60.0 (>56); GLUCOSE, FASTING 92 MG/DL (70-100); HDL CHOLESTEROL 50 MG/DL (>40); LDL CHOLESTEROL 47 MG/DL (<100); NON-HDL-C 53 MG/DL; POTASSIUM SERUM 4.3 MEQ/L (3.5-5.1); SODIUM LEVEL 138 MEQ/L (136-145); TOTAL 25(OH) VITAMIN D 41.2 NG/ML (30.0-100.0); TOTAL PROTEIN 6.9 GM/DL (6.4-8.2); TRIGLYCERIDES LEVEL 32 MG/DL (<150)
== END ==
LOC: M PLALAB 09:19
PROVIDERS: ATTEND Physician Assistant
DX: E03.9 Hypothyroidism, unspecified (principal)

== ENCOUNTER → 2022-04-14 | Outpatient (CLI) | payer BC, OTHER ==
[~2022-04-14] MED LIST changes: +VENTAER INH
== END ==
LOC: M LABSMTC 10:52
PROVIDERS: ATTEND Anesthesiology
DX: Z01.812 Encounter for preprocedural laboratory examination (principal); Z11.52 Encounter for screening for COVID-19

== ENCOUNTER 2022-04-17 07:16 | Day surgery (SDC) | payer BC, OTHER ==
[~2022-04-17] VITALS: Ht 175.3 cm; Wt 81.1 kg
[~2022-04-17 07:16] MED LIST changes: +NS 1,000 ML IV ONE
[2022-04-17] MEDS ORDERED: propofoL 500 MG/50 ML VIAL As Ordered ONE (07:38)
[2022-04-17] MEDS ORDERED: LIDOCAINE 2% 100MG/5ML SDV (FOR ANES.) As Ordered ONE (07:39)
[2022-04-17 08:43] VITALS: BP 122/78
== END 2022-04-17 08:56 | disposition home or self-care (01) ==
LOC: M OPP 07:16
PROVIDERS: ATTEND Internal Medicine Gastroenterology
DX: Z12.11 Encounter for screening for malignant neoplasm of colon (principal); D12.2 Benign neoplasm of ascending colon; K63.5 Polyp of colon; K57.30 Diverticulosis of large intestine without perforation or abscess without bleeding; K64.8 Other hemorrhoids; I25.2 Old myocardial infarction; E03.9 Hypothyroidism, unspecified; E78.00 Pure hypercholesterolemia, unspecified; F32.9 Major depressive disorder, single episode, unspecified; J45.909 Unspecified asthma, uncomplicated; Z79.02 Long term (current) use of antithrombotics/antiplatelets; Z79.51 Long term (current) use of inhaled steroids; Z79.82 Long term (current) use of aspirin; Z79.899 Other long term (current) drug therapy

== ENCOUNTER → 2022-09-17 | Outpatient (REF) | payer OTHER ==
[~2022-09-17] MED LIST changes: -NS 1,000 ML IV ONE
[2022-09-18 16:09] LABS: TESTOSTERONE FREE (DIRECT) 5.1 pg/mL (7.2-24.0)
== END ==
LOC: M SFHCADAM 10:45
PROVIDERS: ATTEND Physician Assistant
DX: E34.9 Endocrine disorder, unspecified (principal); R53.83 Other fatigue

== ENCOUNTER → 2023-04-21 | Outpatient (CLI) | payer BC, OTHER ==
[~2023-04-21] MED LIST changes: +DICY-61 PO; -DICY10CA13 PO
== END ==
LOC: M PLAIMG 08:45
PROVIDERS: ATTEND Physician Assistant
DX: R05.3 Chronic cough (principal)

== ENCOUNTER → 2023-08-31 | Outpatient (CLI) | payer BC ==
[~2023-08-31] MED LIST changes: +GASTROGRAFIN SOLUTION 30ML As Ordered ONE; +ISOVUE-370 76% 100ML VIAL As Ordered ONE
== END ==
LOC: M RAD 14:05
PROVIDERS: ATTEND Physician Assistant
DX: R10.32 Left lower quadrant pain (principal)